=== PATIENT | male | born 1935 | race Caucasian/White ===

== ENCOUNTER → 2016-08-02 | Outpatient (CLI) | payer MEDICARE, OTHER ==
--- NOTE | 2016-08-03 05:42 | US ---
Procedure: US CAROTID DOPPLER BILATERAL Exam Date: 08/02/2016 Ordering Provider: EMILY ECHAVARRIA Clinical Indication: Dizziness giddiness Comparison: February 21, 2012 CTA neck TECHNIQUE : Real-time cerebrovascular ultrasonography was obtained from sternal notch to the angle of the mandible bilaterally utilizing moss scale, color flow and spectral Doppler analysis. Systolic velocity ratios were calculated for internal carotid artery to common carotid artery bilaterally. FINDINGS: RIGHT CAROTID BIFURCATION: Right internal carotid artery is occluded. There is no flow visualized in the right vertebral artery. LEFT CAROTID BIFURCATION: Moderate atherosclerotic plaque. Peak systolic and end-diastolic velocities in the left internal carotid artery are 148 and 41 cm/s. Internal carotid/common carotid ratio is 1.8. Left vertebral flow is antegrade. IMPRESSION: 1. Right internal carotid artery is occluded. 2. There is 50-69% stenosis at the left ICA origin. 3. There is antegrade flow in the left vertebral artery. 4. No flow visualized in the right vertebral artery. Electronically signed by: Marcos Cuellar MD 08/03/2016 5:41 AM CDT
== END | disposition home or self-care (01) ==
LOC: US 12:33
PROVIDERS: ATTEND Internal Medicine Interventional Cardiology
DX: I65.23 Occlusion and stenosis of bilateral carotid arteries (principal); R42 Dizziness and giddiness

== ENCOUNTER 2016-08-29 18:45 | Emergency (ER) | payer MEDICARE, OTHER ==
[2016-08-29 19:19] VITALS: BP 170/75; TEMP 97.7; O2SAT 93
--- NOTE | 2016-08-29 19:23 | ED.PDOC ---
History of Present Illness - General Chief Complaint: Skin/Abrasion/Tear Stated Complaint: rash on arms Time Seen by Provider: 08/29/16 19:19 Source: patient, family Exam Limitations: no limitations - History of Present Illness Initial Comments: PT REPORTS 1 WEEK HISTORY OF PRURITIC BILATERAL UPPER EXTREMITY RASH THAT BEGAN 1 WEEK AGO. PT REPORTS WORKING IN THE YARD AND COVERING BOTH ARMS WITH SOCKS TO PREVENT BRUISING. PT REPORTS THAT THE RASH DEVELOPED APPROXIMATELY 2 DAYS AFTER WORKING IN THE YARD. PT REPORTS USING BENADRYL GEL AT HOME WITH ONLY MINIMAL IMPROVEMENT IN SYMPTOMS. Timing/Duration: week Severity: moderate Location: extremities - bilateral upper Improving Factors: medication - topical preparations at home Worsening Factors: nothing Associated Symptoms: denies symptoms Allergies/Adverse Reactions: Allergies NO KNOWN ALLERGY Allergy (Verified 08/29/16 19:05) Home Medications: Ambulatory Orders Aspirin [(None)] 325 mg PO QD 12/05/15 Atorvastatin Calcium [Lipitor] 80 mg PO BEDTIME 12/05/15 Clopidogrel Bisulfate [Plavix] 75 mg PO QD 12/05/15 Lisinopril 20 mg PO BEDTIME 12/05/15 Lisinopril 20 mg PO DAILY@0700 12/05/15 Metformin HCl 500 mg PO BEDTIME 12/05/15 Metoprolol Tartrate 50 mg PO BEDTIME 12/05/15 Metoprolol Tartrate 50 mg PO DAILY@0700 12/05/15 Potassium Chloride [Potassium Chloride ER] 20 meq PO DAILY 12/05/15 amLODIPine BESYLATE [Norvasc] 5 mg PO DAILY 12/05/15 Prednisone 50 mg PO DAILY #5 tab 08/29/16 Review of Systems - Review of Systems Constitutional: Denies: fever, malaise Musculoskeletal: Denies: joint pain, joint swelling Skin: Denies: dryness, lumps Neurological: Denies: numbness, paresthesia Hematologic/Lymphatic: Denies: blood clots, swollen glands Past Medical History (General) - Patient Medical History Hx Seizures: No Hx Stroke: No Hx Dementia: No Hx Asthma: No Hx of COPD: No Hx Cardiac Disorders: Yes Hx Congestive Heart Failure: No Hx Pacemaker: Yes Hx Hypertension: Yes Hx Thyroid Disease: No Hx Diabetes: Yes Hx Gastroesophageal Reflux: No Hx Renal Disease: No Hx Cancer: No Hx of HIV: No Hx Hepatitis C: No Hx MRSA: No Surgical History: coronary bypass surgery, pacemaker, other - Vaccination History Hx Tetanus, Diphtheria Vaccination: No Hx Influenza Vaccination: Yes Hx Pneumococcal Vaccination: Yes Immunizations Up to Date: No - Social History Hx Tobacco Use: Yes Hx Chewing Tobacco Use: Yes Tins Per Day Chewed: 0.5 Tins Per Week: 3 Hx Alcohol Use: No Hx Substance Use: No Hx Substance Use Treatment: No Hx Depression: No Feels Threatened In Home Enviroment: No Feels Threatened In a Relationship: No Hx Physical Abuse: No Hx Emotional Abuse: No Hx Suspected Abuse: No - Female History Patient is a Female of Child Bearing Age (10 -59 yrs old): No Family Medical History - Family History Mother Living Status: Physical Exam - Physical Exam General Appearance: Alert, Comfortable, No apparent distress Extremity: normal range of motion, non-tender Skin Exam: warm/dry Skin Problem Location: upper extremities Skin Character: papules - COALESCENT ERYTHEMATOUS URTICARIAL AND SCATTERED PAPULAR LESIONS TO THE MEDIAL ASPECTS OF BOTH FOREARMS. NO PALMAR INVOLVEMENT, NO BLISTERS NOTED. , urticarial Lymphatic: no adenopathy Progress - Progress Progress: 08/29/16 19:28 IM BENADRYL AND SOLU MEDROL ADMINISTERED IN THE ED. PT INSTRUCTED TO FOLLOW UP WITH PCP FOR FURTHER EVALUATION. Departure - Departure Clinical Impression: Pruritic rash Time of Disposition: 19:29 Disposition: Discharge to Home or Self Care Condition: Good Departure Forms: ED Discharge - Pt. Copy, Patient Portal Self Enrollment Instructions: DI for Rash Referrals: Elier Pan MD [Primary Care Provider] - 1-2 Weeks Prescriptions: Prednisone 50 mg PO DAILY #5 tab Home Medications: Ambulatory Orders Aspirin [(None)] 325 mg PO QD 12/05/15 Atorvastatin Calcium [Lipitor] 80 mg PO BEDTIME 12/05/15 Clopidogrel Bisulfate [Plavix] 75 mg PO QD 12/05/15 Lisinopril 20 mg PO BEDTIME 12/05/15 Lisinopril 20 mg PO DAILY@0700 12/05/15 Metformin HCl 500 mg PO BEDTIME 12/05/15 Metoprolol Tartrate 50 mg PO BEDTIME 12/05/15 Metoprolol Tartrate 50 mg PO DAILY@0700 12/05/15 Potassium Chloride [Potassium Chloride ER] 20 meq PO DAILY 12/05/15 amLODIPine BESYLATE [Norvasc] 5 mg PO DAILY 12/05/15 Prednisone 50 mg PO DAILY #5 tab 08/29/16
[2016-08-29] MEDS: diphenhydrAMINE HCL 50 MG/ML VIAL IM ONE (19:27)
[2016-08-29] MEDS: methylPREDNISolone SODIUM SUC 125 MG/2 ML VIAL IM ONE (19:27)
== END 2016-08-29 19:45 | disposition home or self-care (01) ==
LOC: ER 18:45
DX: L29.9 Pruritus, unspecified (principal); F17.220 Nicotine dependence, chewing tobacco, uncomplicated; I10 Essential (primary) hypertension; E11.9 Type 2 diabetes mellitus without complications; Z95.0 Presence of cardiac pacemaker; Z95.1 Presence of aortocoronary bypass graft; Z79.899 Other long term (current) drug therapy; Z79.82 Long term (current) use of aspirin; Z79.02 Long term (current) use of antithrombotics/antiplatelets
CPT/HCPCS: J1200; J2930

== ENCOUNTER → 2016-10-27 | Outpatient (CLI) | payer MEDICARE, OTHER | END | disposition home or self-care (01) | LOC: GMAB 10:50 | PROVIDERS: ATTEND Family Medicine | DX: Z12.5 Encounter for screening for malignant neoplasm of prostate (principal); I10 Essential (primary) hypertension | CPT/HCPCS: 84443; G0103 ==

== ENCOUNTER → 2017-10-31 | Outpatient (CLI) | payer MEDICARE, OTHER | LOC: GMAE 10:31 | PROVIDERS: ATTEND Family Medicine | DX: R25.2 Cramp and spasm (principal); R26.9 Unspecified abnormalities of gait and mobility; I10 Essential (primary) hypertension ==

== ENCOUNTER → 2018-10-30 | Outpatient (CLI) | payer MEDICARE, OTHER | LOC: GMAE 14:27 | PROVIDERS: ATTEND Family Medicine | DX: E53.8 Deficiency of other specified B group vitamins (principal); R53.82 Chronic fatigue, unspecified; M62.81 Muscle weakness (generalized); E83.51 Hypocalcemia; E11.9 Type 2 diabetes mellitus without complications; E78.2 Mixed hyperlipidemia; Z79.891 Long term (current) use of opiate analgesic ==

== ENCOUNTER 2018-11-06 22:09 | Emergency (ER) | payer MEDICARE, OTHER ==
--- NOTE | 2018-11-06 22:47 | ED.PDOC ---
History of Present Illness - General Chief Complaint: Upper Extremity Injury Stated Complaint: Right Shoulder Pain Time Seen by Provider: 11/06/18 22:27 Source: patient Exam Limitations: no limitations - History of Present Illness Initial Comments: Patient presents with right shoulder pain. It started this evening when he was fixing a gutter and he had his arm extended forward above his head. The pain is at the A-C joint with no radiation. Constant. Worse with movement, better with rest. He did have a problem with his right rotator cuff many years ago. No other complaints. Timing/Duration: 1-3 hours Severity: moderate Improving Factors: rest Worsening Factors: movement Associated Symptoms: denies symptoms Allergies/Adverse Reactions: Allergies NO KNOWN ALLERGY Allergy (Verified 08/29/16 19:05) Home Medications: Ambulatory Orders Aspirin [(None)] 325 mg PO QD 12/05/15 Atorvastatin Calcium [Lipitor] 80 mg PO BEDTIME 12/05/15 Clopidogrel Bisulfate [Plavix] 75 mg PO QD 12/05/15 Lisinopril 20 mg PO DAILY@0700 12/05/15 Metformin HCl [Metformin Hydrochloride] 500 mg PO BEDTIME 12/05/15 Metoprolol Tartrate 50 mg PO BEDTIME 12/05/15 Metoprolol Tartrate 100 mg PO BEDTIME 12/05/15 Potassium Chloride [Potassium Chloride ER] 20 meq PO DAILY 12/05/15 amLODIPine BESYLATE [Norvasc] 10 mg PO DAILY 12/05/15 Cyclobenzaprine HCl [Flexeril] 10 mg PO TID PRN #20 tab 11/06/18 Review of Systems - Review of Systems Constitutional: States: no symptoms reported EENTM: States: no symptoms reported Respiratory: States: no symptoms reported Cardiology: States: no symptoms reported Gastrointestinal/Abdominal: States: no symptoms reported Genitourinary: States: no symptoms reported Musculoskeletal: States: see HPI Skin: States: no symptoms reported Neurological: States: no symptoms reported Endocrine: States: no symptoms reported Hematologic/Lymphatic: States: no symptoms reported Past Medical History (General) - Patient Medical History Hx Seizures: No Hx Stroke: No Hx Dementia: No Hx Asthma: No Hx of COPD: No Hx Cardiac Disorders: Yes - Pt has STENTs Hx Congestive Heart Failure: No Hx Pacemaker: Yes Hx Hypertension: Yes Hx Thyroid Disease: No Hx Diabetes: Yes Hx Gastroesophageal Reflux: No Hx Renal Disease: No Hx Cancer: No Hx of HIV: No Hx Hepatitis C: No Hx MRSA: No Surgical History: pacemaker - Vaccination History Hx Tetanus, Diphtheria Vaccination: No Hx Influenza Vaccination: No Hx Pneumococcal Vaccination: Yes - 11/06/2018 Immunizations Up to Date: No - Social History Hx Tobacco Use: Yes Hx Chewing Tobacco Use: Yes - 1 can per four days Hx Alcohol Use: No Hx Substance Use: No Hx Substance Use Treatment: No Hx Depression: No Feels Threatened In Home Enviroment: No Feels Threatened In a Relationship: No Hx Physical Abuse: No Hx Emotional Abuse: No Hx Suspected Abuse: No Family Medical History - Family History Mother Living Status: Physical Exam - Physical Exam General Appearance: Alert Neck: non-tender, full range of motion, supple Respiratory: lungs clear, normal breath sounds Cardiovascular/Chest: normal peripheral pulses, regular rate, rhythm Gastrointestinal/Abdominal: normal bowel sounds, non tender, soft Extremity: other - Pain with abduction.extension, rotation and elevation of the right arm. Beer can sign is positive. Internal rotation with adduction is painful against resistance. Retraction with full extension against resistance is painful. Elevation at 90 degree flexion of the forearm with resistance to external rotation is painful. Neurologic: no motor/sensory deficits, alert, normal mood/affect, oriented x 3 Progress - Progress Progress: 11/06/18 23:36 Radiographs of the right shoulder were negative for fracture or dislocation. Patient given a sling and RX for Flexeril. Care instructions given. E.R. warnings given. Questions were elicited and answered. Patient voiced understanding and agreement with the plan. - EKG/XRAY/CT CT Ordered: No Departure - Departure Clinical Impression: Rotator cuff disorder Disposition: Discharge to Home or Self Care Condition: Good Departure Forms: ED Discharge - Pt. Copy, Patient Portal Self Enrollment Instructions: Rotator Cuff Injury (DC) Diet: resume usual diet Activity: no pushing/pulling with affected limb Prescriptions: Cyclobenzaprine HCl [Flexeril] 10 mg PO TID PRN #20 tab PRN Reason: Pain Home Medications: Ambulatory Orders Aspirin [(None)] 325 mg PO QD 12/05/15 Atorvastatin Calcium [Lipitor] 80 mg PO BEDTIME 12/05/15 Clopidogrel Bisulfate [Plavix] 75 mg PO QD 12/05/15 Lisinopril 20 mg PO DAILY@0700 12/05/15 Metformin HCl [Metformin Hydrochloride] 500 mg PO BEDTIME 12/05/15 Metoprolol Tartrate 50 mg PO BEDTIME 12/05/15 Metoprolol Tartrate 100 mg PO BEDTIME 12/05/15 Potassium Chloride [Potassium Chloride ER] 20 meq PO DAILY 12/05/15 amLODIPine BESYLATE [Norvasc] 10 mg PO DAILY 12/05/15 Cyclobenzaprine HCl [Flexeril] 10 mg PO TID PRN #20 tab 11/06/18 Additional Instructions: Take medication as prescribed. Us the sling except when showering or bathing. See your regular doctor in three days for further evaluation.
--- NOTE | 2018-11-06 22:56 | RAD ---
EXAM: XR Right Shoulder Complete, 2 or More Views CLINICAL HISTORY: The patient is 83 years old and is Male; right shoulder pain TECHNIQUE: Two or more views of the right shoulder. COMPARISON: No relevant prior studies available. FINDINGS: BONES/JOINTS: Degenerative change of the shoulder with acromioclavicular and glenohumeral joint space narrowing is present. No acute fracture. No dislocation. SOFT TISSUES: Unremarkable. LUNGS: The visualized lung is clear. IMPRESSION: No acute findings. Electronically signed by: Liz Funes MD 11/06/2018 10:54 PM CDT
[2018-11-06] MEDS ORDERED: ORPHENADRINE CITRATE 30 MG/ML AMP IM ONE (23:42)
[2018-11-06] MEDS ORDERED: KETOROLAC TROMETHAMINE INJ 30 MG/ML VIAL IM ONE (23:43)
[2018-11-07 00:15] VITALS: BP 156/68; TEMP 98.7; O2SAT 93
== END 2018-11-07 00:18 | disposition home or self-care (01) ==
LOC: ER 22:09
DX: M75.101 Unspecified rotator cuff tear or rupture of right shoulder, not specified as traumatic (principal); I51.9 Heart disease, unspecified; I10 Essential (primary) hypertension; E11.9 Type 2 diabetes mellitus without complications; Z95.0 Presence of cardiac pacemaker; Z95.5 Presence of coronary angioplasty implant and graft; Z79.899 Other long term (current) drug therapy; Z79.82 Long term (current) use of aspirin; Z79.84 Long term (current) use of oral hypoglycemic drugs
CPT/HCPCS: 73030; J1885; J2360

== ENCOUNTER → 2018-11-23 | Outpatient (CLI) | payer MEDICARE, OTHER | LOC: CT 09:00 | PROVIDERS: ATTEND Internal Medicine Nephrology | DX: N18.4 Chronic kidney disease, stage 4 (severe) (principal); N28.1 Cyst of kidney, acquired; N20.0 Calculus of kidney; I70.8 Atherosclerosis of other arteries; R16.0 Hepatomegaly, not elsewhere classified; K59.00 Constipation, unspecified; N40.0 Benign prostatic hyperplasia without lower urinary tract symptoms; K40.20 Bilateral inguinal hernia, without obstruction or gangrene, not specified as recurrent; Z90.49 Acquired absence of other specified parts of digestive tract; Z95.828 Presence of other vascular implants and grafts; Z98.1 Arthrodesis status ==

== ENCOUNTER → 2019-01-08 | Outpatient (CLI) | payer MEDICARE, OTHER | LOC: GMAE 11:14 | PROVIDERS: ATTEND Family Medicine | DX: D47.2 Monoclonal gammopathy (principal) ==

== ENCOUNTER 2019-10-28 12:55 | Emergency (ER) | payer MEDICARE, OTHER ==
[2019-10-28] MEDS ORDERED: SODIUM CHLORIDE 0.9% (FLUSH) 10 ML SYG IV PRN (13:24)
--- NOTE | 2019-10-28 13:25 | ED.PDOC ---
History of Present Illness - General Chief Complaint: Blood Pressure Problem Stated Complaint: dizziness, weakness, low BP Time Seen by Provider: 10/28/19 13:24 - History of Present Illness Initial Comments: 84 yo male with PMH of HTN, CKD who is bib from home for cc of lightheadedness. Onset around 10:30 AM this morning, waxing and waning, moderate severity at worst, currently mild severity at rest. No known exacerbating or relieving factors. He reports that he took all of his morning medications including lisinopril 20 mg, Norvasc 5 mg, and metoprolol 50 mg. Reports around 1 hour ago he checked his blood pressure at home which was 105/63, which he states is pretty low for him. Also reports some dizziness and occasional blurry vision as well as some generalized weakness and fatigue since this morning. He reports he has had occasional similar symptoms for several weeks now. He states that usually occurs shortly after taking his blood pressure medication and he reports his blood pressure is lower than usual while symptoms are occurring. Currently denies any chest pain, dyspnea, fevers, chills, cough, abdominal pain, nausea, vomiting, diarrhea, urinary symptoms, leg swelling. Denies any confusion, facial droop, slurred speech, weakness, numbness. PCP is Dr. Rios and nutrition instructor is Dr. Capellan. Allergies/Adverse Reactions: Allergies NO KNOWN ALLERGY Allergy (Verified 08/29/16 19:05) Home Medications: Ambulatory Orders Aspirin [(None)] 325 mg PO QD 12/05/15 Atorvastatin Calcium [Lipitor] 80 mg PO BEDTIME 12/05/15 Clopidogrel Bisulfate [Plavix] 75 mg PO QD 12/05/15 Lisinopril 20 mg PO DAILY@0700 12/05/15 Metoprolol Tartrate 50 mg PO BID 12/05/15 Potassium Chloride [Potassium Chloride ER] 20 meq PO DAILY 12/05/15 amLODIPine BESYLATE [Norvasc] 10 mg PO DAILY 12/05/15 Cyclobenzaprine HCl [Flexeril] 10 mg PO TID PRN #20 tab 11/06/18 Review of Systems - Review of Systems Review of Systems: 10/28/19 14:01 Per HPI All other Systems: Reviewed and Negative Past Medical History (General) - Patient Medical History Hx Seizures: No Hx Stroke: No Hx Dementia: No Hx Asthma: No Hx of COPD: No Hx Cardiac Disorders: Yes - Pt has STENTs Hx Congestive Heart Failure: No Hx Pacemaker: Yes Hx Hypertension: Yes Hx Thyroid Disease: No Hx Diabetes: No Hx Gastroesophageal Reflux: No Hx Renal Disease: No Hx Cancer: No Hx of HIV: No Hx Hepatitis C: No Hx MRSA: No Surgical History: coronary bypass surgery, pacemaker - Vaccination History Hx Tetanus, Diphtheria Vaccination: No Hx Influenza Vaccination: No Hx Pneumococcal Vaccination: Yes - 11/06/2018 - Social History Hx Tobacco Use: Yes Hx Chewing Tobacco Use: Yes - 1 can per four days Hx Alcohol Use: No Hx Substance Use: No Hx Substance Use Treatment: No Hx Depression: No Hx Physical Abuse: No Hx Emotional Abuse: No Hx Suspected Abuse: No - Activities of Daily Living Hospice Agency (if applicable):: None - Female History Patient is a Female of Child Bearing Age (10 -59 yrs old): No Family Medical History - Family History Mother Living Status: Physical Exam - Physical Exam General Appearance: Alert, Comfortable, No apparent distress Eye Exam: bilateral normal Ears, Nose, Throat: hearing grossly normal, normal ENT inspection, normal pharynx Neck: non-tender, full range of motion, supple, normal inspection Respiratory: chest non-tender, lungs clear, normal breath sounds, no respiratory distress, no accessory muscle use Cardiovascular/Chest: normal peripheral pulses, regular rate, rhythm, no edema, no gallop, no JVD, no murmur Peripheral Pulses: radial,right: 2+, radial,left: 2+ Gastrointestinal/Abdominal: non tender, soft, no organomegaly Back Exam: normal inspection, no CVA tenderness, no vertebral tenderness Extremity: normal range of motion, non-tender, normal inspection, no pedal e paul, no calf tenderness, normal capillary refill Neurologic: barrel driller II-XII nml as tested, no motor/sensory deficits, alert, normal mood/affect, oriented x 3 Skin Exam: normal color, warm/dry Progress - Progress Progress: 10/28/19 13:32 Dizziness, lightheadedness -Nonspecific in nature. Suspect iatrogenic due to blood pressure medications and hydrocodone. Consider also dehydration, electrolyte derangement, TIA, ACS, arrhythmia, CHF, UTI, other infection. -Patient stable upon ED arrival. Blood pressure 130s/60s. Remainder of vitals within normal limits -Obtain blood work and cardiac work-up and UA. Will place PIV and give 1 L normal saline bolus 10/28/19 14:49 -Pt has remained stable, all symptoms resolved in ED with IV fluids and rest. BP remained 130s-140s/60s in ED, remainder of vitals stable. Labs revealed serum creatinine level of 2.0. His baseline is around 1.[address] Rios. Remainder of lab work largely unremarkable from chronic. -Discussed diagnosis of iatrogenic hypotension which is now resolved. I discussed the patient with Dr. Rios who would like for the patient to continue on his usual medication regimen but to take them 1 to 2 hours apart in the morning and evening. He would like for the patient to follow-up in the next week with a log of the patient's blood pressures at home. I have advised the patient of this. We will discharge him to home in good condition with that plan in mind. ED return precautions discussed at length. Malik Martinez MD Billing #[id number]. 10/28/19 13:24 IV Care:Saline Lock per Protoc QSHIFT Telemetry .ONCE Sodium Chloride 0.9% (Flush) [Saline Flush Syringe] 10 ml IV PRN PRN 10/28/19 13:25 UA [URINALYSIS] Stat 10/28/19 13:30 EKG STAT 10/28/19 13:57 Sodium Chloride 0.9% 1000ML [Ns 1000 ml] 1,000 ml IVS ONCE 10/29/19 09:00 Pulse Ox Daily Laboratory Results - last 24 hr 10/28/19 10/28/19 10/28/19 13:10 13:10 13:10 WBC 9.7 RBC 4.36 L Hgb 13.7 L Hct 39.7 L MCV 91.1 MCH 31.3 H MCHC 34.4 RDW 13.8 Plt Count 161 MPV 7.9 Absolute Neuts (auto) 7.50 H Absolute Lymphs (auto) 1.50 Absolute Monos (auto) 0.40 Absolute Eos (auto) 0.20 Absolute Basos (auto) 0.00 Neutrophils % 77.8 Lymphocytes % 15.4 L Monocytes % 4.1 Eosinophils % 2.2 Basophils % 0.5 Sodium 141 Potassium 4.8 Chloride 112 H Carbon Dioxide 23 Anion Gap 10.8 L BUN 31 H Creatinine 2.02 H BUN/Creatinine Ratio 15.3 Random Glucose 160 H Serum Osmolality 291.2 Calcium 9.2 Total Bilirubin 0.7 AST 17 ALT 20 Alkaline Phosphatase 86 Troponin I < 0.02 B-Natriuretic Peptide 204.0 H* Serum Total Protein 7.3 Albumin 3.8 Globulin 3.5 Albumin/Globulin Ratio 1.1 - EKG/XRAY/CT EKG: Atrial - Atrial paced rhythm, heart rate 60, no ST elevations noted, no Q waves noted, axis normal, intervals normal, compared to 12/05/2015 EKG appears unchanged. XRAY: chest - No acute processes per my read. Cardiomegaly without acute congestive heart failure noted. Atrial pacemaker noted. Departure - Departure Clinical Impression: Mild dehydration Adverse effects of medication Qualifiers: Encounter type: initial encounter Qualified Code(s): T50.905A - Adverse effect of unspecified drugs, medicaments and biological substances, initial encounter Time of Disposition: 14:47 Disposition: Discharge to Home or Self Care Condition: Good Departure Forms: ED Discharge - Pt. Copy, Patient Portal Self Enrollment Instructions: DI for High Blood Pressure, Low Blood Pressure (DC) Diet: resume usual diet Activity: increase activity as tolerated Referrals: FARHAT RIOS MD [Primary Care Provider] - 1-5 Days Home Medications: Ambulatory Orders Aspirin [(None)] 325 mg PO QD 12/05/15 Atorvastatin Calcium [Lipitor] 80 mg PO BEDTIME 12/05/15 Clopidogrel Bisulfate [Plavix] 75 mg PO QD 12/05/15 Lisinopril 20 mg PO DAILY@0700 12/05/15 Metoprolol Tartrate 50 mg PO BID 12/05/15 Potassium Chloride [Potassium Chloride ER] 20 meq PO DAILY 12/05/15 amLODIPine BESYLATE [Norvasc] 10 mg PO DAILY 12/05/15 Cyclobenzaprine HCl [Flexeril] 10 mg PO TID PRN #20 tab 11/06/18 Additional Instructions: Continue taking all your home medications. Try taking your morning and evening blood pressure medications each 1 at a time at least 1 to 2 hours apart in order to prevent drops in your blood pressure and dizziness symptoms. Remain well- hydrated and advance your diet and activity level as tolerated. Return to the ED if you develop any concerning symptoms such as focal weakness or numbness, slurred speech, confusion, facial droop, chest pain, shortness of breath, fevers, chills, etc. Record your blood pressure 3 times per day and bring this log to your next visit with your primary care physician. Follow-up with your primary care physician in the next 3 to 5 days as recommended for repeat blood pressure check and evaluation.
--- NOTE | 2019-10-28 13:51 | RAD ---
EXAM DESCRIPTION: Chest,1 View x-ray CLINICAL HISTORY: 84 years Male, dizziness, weakness COMPARISON: 02/10/2012 IMPRESSION: The heart is enlarged, without failure. Median sternotomy wires with changes of prior cardiac surgery. Dual lead left chest wall cardiac device. Atherosclerosis in the thoracic aorta. There is no airspace consolidation, pleural effusion, or pneumothorax. No acute osseous abnormality. Electronically signed by: Julio Krause MD 10/28/2019 1:49 PM CDT
[2019-10-28] MEDS ORDERED: SODIUM CHLORIDE 0.9% 1000ML 1,000 ML IVS ONE (13:57)
[2019-10-28 15:36] VITALS: BP 122/74; TEMP 97.1; O2SAT 96
== END 2019-10-28 15:30 | disposition home or self-care (01) ==
LOC: ER 12:55
DX: E86.0 Dehydration (principal); T50.905A Adverse effect of unspecified drugs, medicaments and biological substances, initial encounter; I12.9 Hypertensive chronic kidney disease with stage 1 through stage 4 chronic kidney disease, or unspecified chronic kidney disease; N18.9 Chronic kidney disease, unspecified; I51.9 Heart disease, unspecified; Z95.5 Presence of coronary angioplasty implant and graft; Z95.0 Presence of cardiac pacemaker; Z79.899 Other long term (current) drug therapy; Z79.02 Long term (current) use of antithrombotics/antiplatelets; Z87.891 Personal history of nicotine dependence
CPT/HCPCS: 36415; 71045; 80053; 83880; 84484; 85025; 93005; J7030

== ENCOUNTER → 2019-11-11 | Outpatient (CLI) | payer MEDICARE, OTHER | LOC: GMAE 10:24 | PROVIDERS: ATTEND Family Medicine | DX: Z12.5 Encounter for screening for malignant neoplasm of prostate (principal); I10 Essential (primary) hypertension; E11.9 Type 2 diabetes mellitus without complications; E78.2 Mixed hyperlipidemia; Z79.891 Long term (current) use of opiate analgesic | CPT/HCPCS: 84443; G0103 ==

== ENCOUNTER 2020-01-06 08:03 | Emergency (ER) | payer MEDICARE, OTHER ==
[2020-01-06 08:14] VITALS: TEMP 97.8
--- NOTE | 2020-01-06 08:19 | ED.PDOC ---
History of Present Illness - General Chief Complaint: Respiratory Problem Stated Complaint: SOB AND COUGH Time Seen by Provider: 01/06/20 08:06 Source: patient, RN notes reviewed, Vital Signs reviewed, family, old records Exam Limitations: no limitations - History of Present Illness Comments: Pt is a 85 yo male who presents to ED with 3 day h/o nonproductive cough and "dry throat." Reports mild shortness of breath. Denies CP, fever, chills, body aches or recent sick contacts. States all of his symptoms completely resolved about 10 minutes ago and he feels at baseline at this time. Allergies/Adverse Reactions: Allergies NO KNOWN ALLERGY Allergy (Verified 01/06/20 08:15) Home Medications: Ambulatory Orders Aspirin [(None)] 325 mg PO QD 12/05/15 Clopidogrel Bisulfate [Plavix] 75 mg PO QD 12/05/15 Metoprolol Tartrate 50 mg PO BID 12/05/15 Potassium Chloride [Potassium Chloride ER] 20 meq PO DAILY 12/05/15 Review of Systems - Review of Systems Constitutional: Denies: chills, fever, malaise EENTM: States: other - dry throat. Denies: ear pain, nose congestion Respiratory: States: cough. Denies: wheezing Cardiology: Denies: chest pain, palpitations, syncope Gastrointestinal/Abdominal: Denies: abdominal pain, diarrhea, nausea, vomiting Musculoskeletal: Denies: back pain, neck pain Skin: Denies: rash All other Systems: Reviewed and Negative Past Medical History (General) - Patient Medical History Hx Seizures: No Hx Stroke: No Hx Dementia: No Hx Asthma: No Hx of COPD: No Hx Cardiac Disorders: Yes - Pt has STENTs/BYPASS Hx Congestive Heart Failure: No Hx Pacemaker: Yes Hx Hypertension: Yes Hx Thyroid Disease: No Hx Diabetes: No Hx Gastroesophageal Reflux: No Hx Renal Disease: No Hx Cancer: No Hx of HIV: No Hx Hepatitis C: No Hx MRSA: No Surgical History: appendectomy, cholecystectomy, coronary bypass surgery - Vaccination History Hx Tetanus, Diphtheria Vaccination: No Hx Influenza Vaccination: No Hx Pneumococcal Vaccination: Yes - Social History Hx Tobacco Use: Yes Hx Chewing Tobacco Use: Yes - 1 can per four days Hx Alcohol Use: No Hx Substance Use: No Hx Substance Use Treatment: No Hx Depression: No Hx Physical Abuse: No Hx Emotional Abuse: No Hx Suspected Abuse: No Family Medical History - Family History Mother Living Status: Physical Exam - Physical Exam General Appearance: Alert, Comfortable, No apparent distress ENT Exam: other - oropharynx has no erythema, edema or exudates Neck: full range of motion, supple Respiratory: chest non-tender, lungs clear, normal breath sounds, no respiratory distress, other - Good air movement with no wheezes. Speaks in full sentences Cardiovascular/Chest: regular rate, rhythm, no edema Gastrointestinal/Abdominal: non tender, soft Extremity: normal range of motion, non-tender Neurologic: no motor/sensory deficits, alert, normal mood/affect Progress - Progress Progress: 01/06/20 08:21 Differential Diagnosis: Pneumonia, Viral URI, Bronchitis, COPD 01/06/20 10:06 Patient presented with cough, mild shortness of breath and feeling that his throat was dry. States after he began wearing a mask all his symptoms have resolved and has remained symptom-free throughout ED stay. I have discussed labs and imaging. Vital signs have been stable and he has no hypoxia or respiratory distress. He feels comfortable going home with follow-up with his PCP in 1 to 2 days for recheck. Strict return precautions given. - Results/Orders Results/Orders: CHEST XRAY EXAM DESCRIPTION: Chest,1 View x-ray CLINICAL HISTORY: 85 years Male, cough COMPARISON: 10/28/2019 IMPRESSION: The heart remains enlarged, without failure. Median sternotomy wires with changes of prior cardiac surgery. Dual lead left chest wall cardiac device. Atherosclerosis in the thoracic aorta. The lungs are mildly hyperexpanded. There is no airspace consolidation, pleural effusion, or pneumothorax. No acute osseous abnormality. Partially imaged lower cervical ACDF hardware. EKG- Atrial paced rhythm, rate 60, normal QRS interval, nonspecific T wave abnormality 01/06/20 08:15 IV:Start .ONCE Laboratory Results - last 24 hr 01/06/20 01/06/20 08:18 08:18 WBC 8.8 RBC 4.43 L Hgb 13.7 L Hct 40.4 L MCV 91.2 MCH 31.0 MCHC 34.0 RDW 13.8 Plt Count 134 MPV 7.7 Absolute Neuts (auto) 6.80 Absolute Lymphs (auto) 1.10 Absolute Monos (auto) 0.50 Absolute Eos (auto) 0.30 Absolute Basos (auto) 0.10 Neutrophils % 77.3 Lymphocytes % 13.0 L Monocytes % 5.4 Eosinophils % 3.4 Basophils % 0.9 Sodium 139 Potassium 4.7 Chloride 106 Carbon Dioxide 24 Anion Gap 13.7 BUN 28 H Creatinine 1.63 H BUN/Creatinine Ratio 17.2 Random Glucose 170 H Serum Osmolality 287.0 Calcium 8.9 Departure - Departure Clinical Impression: Viral URI with cough Time of Disposition: 10:07 Disposition: Discharge to Home or Self Care Condition: Good Departure Forms: ED Discharge - Pt. Copy, Patient Portal Self Enrollment Instructions: Viral Upper Respiratory Infection, Adult (DC) Diet: resume usual diet Activity: increase activity as tolerated Referrals: FARHAT RAMIREZ MD [Primary Care Provider] - 1-2 Days Home Medications: Ambulatory Orders Aspirin [(None)] 325 mg PO QD 12/05/15 Clopidogrel Bisulfate [Plavix] 75 mg PO QD 12/05/15 Metoprolol Tartrate 50 mg PO BID 12/05/15 Potassium Chloride [Potassium Chloride ER] 20 meq PO DAILY 12/05/15
--- NOTE | 2020-01-06 10:02 | RAD ---
EXAM DESCRIPTION: Chest,1 View x-ray CLINICAL HISTORY: 85 years Male, cough COMPARISON: 10/28/2019 IMPRESSION: The heart remains enlarged, without failure. Median sternotomy wires with changes of prior cardiac surgery. Dual lead left chest wall cardiac device. Atherosclerosis in the thoracic aorta. The lungs are mildly hyperexpanded. There is no airspace consolidation, pleural effusion, or pneumothorax. No acute osseous abnormality. Partially imaged lower cervical ACDF hardware. Electronically signed by: Julio Krause MD 01/06/2020 10:01 AM CDT
[2020-01-06 10:24] VITALS: BP 139/51; O2SAT 95
== END 2020-01-06 10:24 | disposition home or self-care (01) ==
LOC: ER 08:03
DX: J06.9 Acute upper respiratory infection, unspecified (principal); I10 Essential (primary) hypertension; I51.9 Heart disease, unspecified; Z95.0 Presence of cardiac pacemaker; Z95.5 Presence of coronary angioplasty implant and graft; Z87.891 Personal history of nicotine dependence; Z79.82 Long term (current) use of aspirin; Z79.02 Long term (current) use of antithrombotics/antiplatelets; Z79.899 Other long term (current) drug therapy

== ENCOUNTER 2020-03-05 12:52 | Outpatient (CLI) | payer MEDICARE, OTHER | END 2020-03-06 11:22 | disposition home or self-care (01) | LOC: INFRM 12:52 | PROVIDERS: ATTEND Family Medicine | DX: U07.1 COVID-19 (principal); I10 Essential (primary) hypertension; J44.9 Chronic obstructive pulmonary disease, unspecified; I25.10 Atherosclerotic heart disease of native coronary artery without angina pectoris; Z23 Encounter for immunization ==

== ENCOUNTER 2020-03-17 11:23 | Inpatient (IN) | payer MEDICARE, OTHER ==
--- NOTE | 2020-03-17 12:17 | RAD ---
Study: Single Frontal Radiograph of the Chest. Indication:covid Comparison: January 06, 2020 Impression: Median sternotomy wires. Cardiac pacemaker. Cardiomegaly. Slightly progressed increased density at the lung bases concerning for pneumonia versus atelectasis. COVID-19 could give this appearance. No pleural effusion or pneumothorax. Electronically signed by: Edgar Piedra MD 03/17/2020 12:15 PM SAFETY COORDINATOR
[2020-03-17] MEDS ORDERED: SODIUM CHLORIDE 0.9% 1000ML 1,000 ML IVS ONE (12:40)
[2020-03-17] MEDS ORDERED: ACETYLCYSTEIN 20 % 6,000 MG/30 ML VIAL PO ONE (12:40)
[2020-03-17] MEDS ORDERED: DEXAMETHASONE INJ 4 MG/ML VIAL IV ONE (12:42)
[2020-03-17] MEDS ORDERED: REMDESIVIR 200 MG in SODIUM CHLORIDE 0.9% 250ML 250 ML IVPB ONE ×2 (12:42→17:00)
[2020-03-17] MEDS ORDERED: cefTRIAXone SODIUM 1 GM in SODIUM CHL 0.9% 50ML MIN-BAG+ 50 ML IVPB ONE (12:42)
[2020-03-17] MEDS ORDERED: AZITHROMYCIN IV 500 MG in SODIUM CHLORIDE 0.9% 250ML 250 ML IVPB ONE (12:43)
[2020-03-17] MEDS ORDERED: ENOXAPARIN SODIUM 80 MG/0.8 ML SYG SUBCU ONE (12:56)
--- NOTE | 2020-03-17 13:17 | ED.PDOC ---
History of Present Illness - General Chief Complaint: Fever Stated Complaint: COVID + Time Seen by Provider: 03/17/20 11:47 Source: patient Exam Limitations: no limitations - History of Present Illness Initial Comments: The patient is an 85-year-old male presented to emergency room secondary to worsening of his general condition over the past 10 days since darrin coronavirus. He does have a cough and some shortness of breath with exertion. He is also had some mild nausea and mild stomach upset. Mild decreased oral intake. He has gotten dizzy and felt weak with essentially almost any activity. The patient has been on steroids and apparently did receive a dose of monoclonal antibody in treatment. The patient does have some mild hypoxia here today. Oxygen saturations at rest ranged from 90 to 93% and with activity brought down to the mid 80s. He is not in respiratory distress. No syncope. He does have some rales to bilateral lung isaac primarily at the bases and lower lung isaac. Timing/Duration: 1 week, constant, getting worse Severity: moderate Improving Factors: nothing Worsening Factors: nothing Associated Symptoms: cough, malaise, shortness of breath, weakness Allergies/Adverse Reactions: Allergies IV DYE Allergy (Uncoded 03/17/20 12:54) Home Medications: Ambulatory Orders Aspirin [(None)] 325 mg PO QD 12/05/15 Clopidogrel Bisulfate [Plavix] 75 mg PO QD 12/05/15 Metoprolol Tartrate 50 mg PO BID 12/05/15 Potassium Chloride [Potassium Chloride ER] 20 meq PO DAILY 12/05/15 Review of Systems - Review of Systems Constitutional: States: malaise, weakness - Generalized EENTM: States: no symptoms reported Respiratory: States: cough, short of breath Cardiology: States: no symptoms reported Gastrointestinal/Abdominal: States: no symptoms reported Genitourinary: States: no symptoms reported Musculoskeletal: States: no symptoms reported Skin: States: no symptoms reported Neurological: States: no symptoms reported Endocrine: States: no symptoms reported All other Systems: No Change from Baseline Past Medical History (General) - Patient Medical History Hx Seizures: No Hx Stroke: No Hx Dementia: No Hx Asthma: No Hx of COPD: No Hx Cardiac Disorders: Yes - Pt has STENTs/BYPASS Hx Congestive Heart Failure: No Hx Pacemaker: Yes Hx Hypertension: Yes Hx Thyroid Disease: No Hx Diabetes: No Hx Gastroesophageal Reflux: No Hx Renal Disease: No Hx Cancer: No Hx of HIV: No Hx Hepatitis C: No Hx MRSA: No Surgical History: cholecystectomy, coronary bypass surgery - Vaccination History Hx Tetanus, Diphtheria Vaccination: No Hx Influenza Vaccination: Yes Hx Pneumococcal Vaccination: Yes - Social History Hx Tobacco Use: Yes - dips Hx Chewing Tobacco Use: Yes - 1 can per four days Hx Alcohol Use: No Hx Substance Use: No Hx Substance Use Treatment: No Hx Depression: No Hx Physical Abuse: No Hx Emotional Abuse: No Hx Suspected Abuse: No - Activities of Daily Living Hospice Agency (if applicable):: None - Female History Patient is a Female of Child Bearing Age (10 -59 yrs old): No Family Medical History - Family History Mother Living Status: Physical Exam - Physical Exam General Appearance: Alert, Frail, Ill Appearing Eye Exam: bilateral normal Ears, Nose, Throat: hearing grossly normal - Mild chronic decrease bilaterally, normal pharynx Neck: non-tender, full range of motion Respiratory: chest non-tender, no respiratory distress, no accessory muscle use, rales Cardiovascular/Chest: normal peripheral pulses, regular rate, rhythm, no edema Peripheral Pulses: radial,right: 2+, radial,left: 2+ Gastrointestinal/Abdominal: non tender, soft Rectal Exam: deferred Extremity: normal range of motion, no pedal edema, normal capillary refill Neurologic: loin trimmer II-XII nml as tested, alert, normal mood/affect, oriented x 3 Skin Exam: normal color Comments: Vital Signs - 24 hr 03/17/20 03/17/20 11:30 11:37 Temperature 98.4 F Pulse Rate [ 62 62 pulse ox] Respiratory 20 20 Rate Blood Pressure 179/71 [Left Arm] O2 Sat by Pulse 94 L Oximetry Progress - Progress Progress: 03/17/20 13:18 The patient is an 85-year-old male presented emergency room secondary to general worsening of condition over the last 10 days associated with his c oronavirus infection. He does have a coronavirus pneumonia with mild hypoxia. He carries a significantly elevated D-dimer. He is going to be receiving Lovenox as a precautionary. He is unable to have a CT angiogram of the chest secondary to IV dye allergy. He may require an outpatient VQ scan in the coming weeks. Lower extremity Dopplers could be considered in the meantime. He is being placed on a azithromycin, Rocephin, dexamethasone and remdesivir and treatment here along with low flow supplemental oxygen primarily for symptomatic relief. The patient is 85, and advanced age and at significantly increased risk. Admit for continued care. ernestina duran [id number] - Results/Orders Results/Orders: EKG shows a paced atrial rhythm at 60 bpm. Q waves in inferior leads. Normal axis. Borderline R wave progression. No definitive ST segment or T wave changes otherwise indicative of acute ischemia. Normal QT interval. Chest x-ray shows mild bibasilar infiltrates. Laboratory Results - last 24 hr 03/17/20 03/17/20 03/17/20 12:05 12:05 12:05 WBC RBC Hgb Hct MCV MCH MCHC RDW Plt Count MPV Absolute Neuts (auto) Absolute Lymphs (auto) Absolute Monos (auto) Absolute Eos (auto) Absolute Basos (auto) Neutrophils % Lymphocytes % Monocytes % Eosinophils % Basophils % PT 10.3 INR 1.04 PTT (SP) 26.1 Fibrinogen D-Dimer, Quantitative 4420.0 H* Sodium 136 Potassium 4.6 Chloride 101 Carbon Dioxide 22 Anion Gap 17.6 BUN 35 H Creatinine 1.46 H BUN/Creatinine Ratio 24.0 H Random Glucose 164 H Serum Osmolality 283.6 Lactic Acid 1.6 Calcium 8.7 Magnesium 1.9 Ferritin Total Bilirubin 0.8 AST 34 ALT 40 Alkaline Phosphatase 61 LD Total Creatine Kinase 34 L CK-MB (CK-2) 0.8 CK-MB (CK-2) % Not Reportable Troponin I < 0.02 C-Reactive Protein B-Natriuretic Peptide 315.0 H* Serum Total Protein 6.6 Albumin 3.4 Globulin 3.2 Albumin/Globulin Ratio 1.1 TSH 0.46 03/17/20 03/17/20 03/17/20 12:05 12:05 12:05 WBC 12.0 H RBC 4.17 L Hgb 12.7 L Hct 37.3 L MCV 89.6 MCH 30.4 MCHC 33.9 RDW 13.0 Plt Count 199 MPV 7.6 Absolute Neuts (auto) 10.90 H Absolute Lymphs (auto) 0.60 L Absolute Monos (auto) 0.50 Absolute Eos (auto) 0.00 Absolute Basos (auto) 0.10 Neutrophils % 90.8 H Lymphocytes % 4.7 L Monocytes % 4.0 Eosinophils % 0.0 L Basophils % 0.5 PT INR PTT (SP) Fibrinogen 355 D-Dimer, Quantitative Sodium Potassium Chloride Carbon Dioxide Anion Gap BUN Creatinine BUN/Creatinine Ratio Random Glucose Serum Osmolality Lactic Acid Calcium Magnesium Ferritin 119.8 Total Bilirubin AST ALT Alkaline Phosphatase LD Total Creatine Kinase CK-MB (CK-2) CK-MB (CK-2) % Troponin I C-Reactive Protein B-Natriuretic Peptide Serum Total Protein Albumin Globulin Albumin/Globulin Ratio TSH 03/17/20 12:05 WBC RBC Hgb Hct MCV MCH MCHC RDW Plt Count MPV Absolute Neuts (auto) Absolute Lymphs (auto) Absolute Monos (auto) Absolute Eos (auto) Absolute Basos (auto) Neutrophils % Lymphocytes % Monocytes % Eosinophils % Basophils % PT INR PTT (SP) Fibrinogen D-Dimer, Quantitative Sodium Potassium Chloride Carbon Dioxide Anion Gap BUN Creatinine BUN/Creatinine Ratio Random Glucose Serum Osmolality Lactic Acid Calcium Magnesium Ferritin Total Bilirubin AST ALT Alkaline Phosphatase LD Total 138 Creatine Kinase CK-MB (CK-2) CK-MB (CK-2) % Troponin I C-Reactive Protein 2.3 H B-Natriuretic Peptide Serum Total Protein Albumin Globulin Albumin/Globulin Ratio TSH Departure - Departure Clinical Impression: Pneumonia due to COVID-19 virus, Advanced age Disposition: Admit Patient Departure Forms: ED Discharge - Pt. Copy, Patient Portal Self Enrollment Referrals: FARHAT RAMIREZ MD [Primary Care Provider] - 1-2 Weeks Home Medications: Ambulatory Orders Aspirin [(None)] 325 mg PO QD 12/05/15 Clopidogrel Bisulfate [Plavix] 75 mg PO QD 12/05/15 Metoprolol Tartrate 50 mg PO BID 12/05/15 Potassium Chloride [Potassium Chloride ER] 20 meq PO DAILY 12/05/15 Decision To Admit - Decistion To Admit Decision to Admit Reason: Medical Nature Decision to Admit Date: 03/17/20 Decision to Admit Time: 13:21
--- NOTE | 2020-03-17 13:43 | HP ---
SUPERVISING PHYSICIAN: Rogelio Temple MD CHIEF COMPLAINT: Shortness of breath and coughing. HISTORY OF PRESENT ILLNESS: This is an 85-year-old male patient who was diagnosed with COVID-19 pneumonitis about 10 days ago. He actually received monoclonal antibodies at that time and initially felt better after that infusion, but over the last week or so, he has continued to get more short of breath with increasing coughing. He does have a history of chronic obstructive pulmonary disease, but he does not wear oxygen at home. He also said he had a fever. In the Emergency Room, his initial vital signs showed temperature 98.4, heart rate 62, blood pressure 179/71, respiratory rate 20, O2 saturation 91-92%. It went up to 94% with oxygen, but with exertion, it went down to the mid 80s. He was visibly short of breath and tachypneic. In the ER, his lab showed WBC 12,000, hemoglobin 12.7, hematocrit 37.3. He has a left shift on differential. D-dimer was 4,420. Electrolytes were basically within normal limits. BUN 35, creatinine 1.46. His baseline creatinine is between 1.4 and 1.6. BNP is 315. Liver enzymes were within normal limits. Chest x-ray showed median sternotomy wires, cardiac pacemaker, cardiomegaly, slightly progressed increased density at the lung bases concerning for pneumonia versus atelectasis. COVID-19 could give this appearance. No pleural effusion or pneumothorax. He was given Remdesivir, azithromycin, Rocephin, Decadron and Lovenox in the ER as well as multiple breathing treatments. Due to his low saturation, bilateral pneumonia and other comorbidities, he was admitted to the hospital for treatment of COVID-19 pneumonitis. PAST MEDICAL HISTORY: 1. Chronic obstructive pulmonary disease. 2. Coronary artery disease. 3. Hyperlipidemia. 4. Hypertension. 5. Chronic renal insufficiency. 6. Diabetes mellitus, type 2. 7. Tobacco abuse. He uses smokeless tobacco. 8. Chronic low back pain. PAST SURGICAL HISTORY: 1. Appendectomy. 2. Cholecystectomy. 3. Coronary artery bypass graft with a 3-vessel graft. 4. Pacemaker insertion. OUTPATIENT MEDICATIONS: Per the EMR and awaiting verification. ALLERGIES: NO KNOWN DRUG ALLERGIES. FAMILY HISTORY: Positive for heart disease and throat cancer. SOCIAL HISTORY: He is . He lives in [place]. He has four children. He quit smoking cigarettes over 30 years ago, but he continues to use smokeless tobacco. There is no ETOH or illicit drug use. PHYSICAL EXAMINATION: VITAL SIGNS: Temperature 97.9, heart rate 62, blood pressure 172/65, respiratory rate 18, O2 saturation 93% on 2 liters nasal cannula. GENERAL: This is an 85-year-old male patient who looks younger than his stated age. He is lying in his bed. He is in no acute distress. HEENT: Normocephalic, atraumatic. Pupils are equal and reactive. Oropharynx is clear. NECK: Supple with full range of motion. RESPIRATORY: Diminished at the bases with a few scattered rhonchi. No wheezes noted. He is tachypneic with any exertion. CARDIOVASCULAR: Regular rate and rhythm. GASTROINTESTINAL: Abdomen is soft, nondistended, nontender. Bowel sounds are positive. EXTREMITIES: No cyanosis, clubbing or edema. NEUROLOGIC: Awake, alert and oriented times three. Cranial nerves II-XII are grossly intact as tested. LABORATORY: Labs and films are as per history of present illness. IMPRESSION: 1. COVID-19 pneumonitis. 2. Chronic obstructive pulmonary disease with acute exacerbation. 3. Chronic renal insufficiency. 4. Hypertension. 5. Hyperlipidemia. 6. Tobacco abuse. 7. Diabetes mellitus, type 2. 8. Chronic low back pain. PLAN: The patient has been admitted to the hospital. He will receive the routine medications and testing as per the COVID guidelines. We will restart his home medications when those are verified. I will put him on sliding scale insulin per protocol. He will also be on Align and Mucinex as well as Lovenox for DVT prophylaxis and proton pump inhibitor for ulcer prophylaxis. Routine labs will be drawn for in the morning. We will monitor the patient closely and follow as needed. #[id number] [facility]
[2020-03-17] MEDS ORDERED: HYDROcodone 10MG/APAP 325MG 1 EA TAB PO ONE (13:47)
[2020-03-17] MEDS ORDERED: HYDROcodone 10MG/APAP 325MG 1 EA TAB ONE (13:48)
[2020-03-17] MEDS ORDERED: ACETAMINOPHEN 325 MG TAB PO PRN (15:03)
[2020-03-17] MEDS ORDERED: SODIUM CHLORIDE 0.9% (FLUSH) 10 ML SYG IV PRN (15:03)
[2020-03-17] MEDS ORDERED: ALBUTEROL INHALER 64 PUFF/8GM INH PRN (15:07)
[2020-03-17] MEDS ORDERED: IV SET AND CAP CHANGE INJ INJ SCH (15:30)
[2020-03-17] MEDS: ALBUTEROL INHALER 64 PUFF/8GM INH SCH ×2 (16:00→19:45)
[2020-03-17] MEDS ORDERED: DEXTROSE 50% 25 GM/50 ML SYG IV PRN (16:10)
[2020-03-17] MEDS ORDERED: GLUCAGON INJ 1 MG VIAL SUBCU PRN (16:10)
[2020-03-17] MEDS ORDERED: INSULIN LISPRO 100 UNITS/ML PEN SUBCU ONE (16:33)
[2020-03-17] MEDS: CLOPIDOGREL 75 MG TAB PO SCH (16:53)
[2020-03-17] MEDS: ASPIRIN TABLET 325 MG TAB PO SCH (16:53)
[2020-03-17] MEDS: metFORMIN XR 500 MG TAB.ER.24 PO SCH (16:53)
[2020-03-17] MEDS: INSULIN LISPRO 100 UNITS/ML PEN SUBCU SCH ×2 (16:54→21:15)
[2020-03-17] MEDS ORDERED: TEMAZEPAM 15 MG CAP PO PRN (17:59)
[2020-03-17] MEDS ORDERED: guaiFENesin ER TAB 600 MG TAB ONE (19:06)
[2020-03-17] MEDS ORDERED: ATORVASTATIN 20 MG TAB PO ONE (19:06)
[2020-03-17] MEDS ORDERED: METOPROLOL TARTRATE 50 MG TAB ONE (19:06)
[2020-03-17] MEDS: ATORVASTATIN 20 MG TAB PO SCH (21:03)
[2020-03-17] MEDS: guaiFENesin ER TAB 600 MG TAB PO SCH (21:03)
[2020-03-17] MEDS: METOPROLOL TARTRATE 50 MG TAB PO SCH (21:04)
[2020-03-17] MEDS: HYDROcodone 10MG/APAP 325MG 1 EA TAB PO PRN (21:04)
[2020-03-17] MEDS: SODIUM CHLORIDE 0.9% (FLUSH) 10 ML SYG IV SCH (21:05)
[2020-03-18] MEDS: HYDROcodone 10MG/APAP 325MG 1 EA TAB PO PRN ×3 (04:11→22:38)
[2020-03-18] MEDS: PANTOPRAZOLE SODIUM IV 40 MG VIAL IV SCH (05:56)
--- NOTE | 2020-03-18 07:55 | RAD ---
EXAM: XR Chest, 1 View CLINICAL HISTORY: Covid TECHNIQUE: Frontal view of the chest. COMPARISON: 03/17/2020 FINDINGS: Lungs: Stable mild interstitial thickening in the periphery of the right lung. Pleural space: No pneumothorax. No pleural effusion. Heart: Normal cardiac size and configuration. Mediastinum: No abnormality noted. Bones/joints: No osseous destruction or sclerosis noted. Tubes, lines and devices: Stable cardiac shadow. Stable cardiac pacing wires. IMPRESSION: Stable abnormalities as above. Electronically signed by: Inna Barnhart MD 03/18/2020 7:53 AM [facility]
[2020-03-18] MEDS: INSULIN LISPRO 100 UNITS/ML PEN SUBCU SCH ×4 (08:00→21:06)
[2020-03-18] MEDS ORDERED: AZITHROMYCIN IV 500 MG VIAL IVPB ONE (08:20)
[2020-03-18] MEDS ORDERED: SODIUM CHLORIDE 0.9% 250ML 250 ML ONE (08:20)
[2020-03-18] MEDS: ALBUTEROL INHALER 64 PUFF/8GM INH SCH ×4 (08:29→20:30)
[2020-03-18] MEDS: ASPIRIN TABLET 325 MG TAB PO SCH (09:01)
[2020-03-18] MEDS: POTASSIUM CHLORIDE 20 MEQ TAB PO SCH (09:01)
[2020-03-18] MEDS: ENOXAPARIN SODIUM 40 MG/0.4 ML SYG SUBCU SCH (09:01)
[2020-03-18] MEDS: METOPROLOL TARTRATE 50 MG TAB PO SCH ×2 (09:01→20:56)
[2020-03-18] MEDS: cefTRIAXone SODIUM 1 GM in SODIUM CHL 0.9% 50ML MIN-BAG+ 50 ML IVPB SCH (09:01)
[2020-03-18] MEDS: LISINOPRIL 10 MG TAB PO SCH (09:01)
[2020-03-18] MEDS: guaiFENesin ER TAB 600 MG TAB PO SCH ×2 (09:01→20:56)
[2020-03-18] MEDS: SODIUM CHLORIDE 0.9% (FLUSH) 10 ML SYG IV SCH ×2 (09:02→20:57)
[2020-03-18] MEDS: amLODIPine BESYLATE 5 MG TAB PO SCH (09:02)
[2020-03-18] MEDS: CLOPIDOGREL 75 MG TAB PO SCH (09:02)
[2020-03-18] MEDS: AZITHROMYCIN IV 500 MG in SODIUM CHLORIDE 0.9% 250ML 250 ML IVPB SCH (09:11)
[2020-03-18] MEDS: DEXAMETHASONE INJ 4 MG/ML VIAL IV SCH (11:36)
[2020-03-18] MEDS: BIFIDOBACTERIUM INFANTIS 4 MG CAP PO SCH ×2 (11:36→20:56)
[2020-03-18] MEDS ORDERED: REMDESIVIR 100 MG in SODIUM CHLORIDE 0.9% 250ML 250 ML IVPB SCH (12:00)
--- NOTE | 2020-03-18 13:33 | PN ---
SUPERVISING PHYSICIAN: Rogelio Temple MD DATE: 03/18/20 SUBJECTIVE: The patient is lying in bed. He says he feels much better. We discussed the possibility of him going home tomorrow if he continues to improve. OBJECTIVE: VITAL SIGNS: Temperature 97.4, heart rate 60, blood pressure 166/69, respiratory rate 18, O2 saturation 99% on 2 liters nasal cannula. RESPIRATORY: Slightly diminished at the bases, but otherwise clear to auscultation. CARDIAC: Regular rate and rhythm. NEUROLOGIC: Awake, alert and oriented times three. LABORATORY: WBCs 7,000, hemoglobin 12.5, hematocrit 37. He has a left shift on differential. Fibrinogen 418, D-dimer 3,350. Electrolytes are basically within normal limits. BUN 37, creatinine 1.41. C-reactive protein 4. RADIOLOGY: Chest x-ray shows lungs stable, mild interstitial thickening in the periphery of the right lung. No pneumothorax, no pleural effusion. All other labs and films have been reviewed via the EMR. ASSESSMENT: 1. COVID-19 pneumonitis. 2. Chronic obstructive pulmonary disease with acute exacerbation. 3. Chronic renal insufficiency. 4. Hypertension. 5. Hyperlipidemia. 6. Tobacco abuse. 7. Diabetes mellitus, type 2. 8. Chronic low back pain. PLAN: We will continue present supportive care including the COVID guidelines. Because tomorrow is a holiday, I will send his discharge medications to his pharmacy so his family can get them. We will plan on discharge for tomorrow if he continues to improve. I will do his lab and x-rays per the protocol. He will need to go home on some DVT prophylaxis as least for 14 days until he sees his primary care physician because of his elevated D-dimer as well as his history. We will monitor and treat as needed. #[id number] [facility]
[2020-03-18] MEDS: metFORMIN XR 500 MG TAB.ER.24 PO SCH (16:28)
[2020-03-18] MEDS: ATORVASTATIN 20 MG TAB PO SCH (20:56)
[2020-03-19] MEDS: HYDROcodone 10MG/APAP 325MG 1 EA TAB PO PRN (05:22)
[2020-03-19] MEDS: PANTOPRAZOLE SODIUM IV 40 MG VIAL IV SCH (05:36)
[2020-03-19] MEDS: ALBUTEROL INHALER 64 PUFF/8GM INH SCH (08:00)
[2020-03-19] MEDS: INSULIN LISPRO 100 UNITS/ML PEN SUBCU SCH (08:05)
[2020-03-19] MEDS: CLOPIDOGREL 75 MG TAB PO SCH (08:20)
[2020-03-19] MEDS: amLODIPine BESYLATE 5 MG TAB PO SCH (08:20)
[2020-03-19] MEDS: ASPIRIN TABLET 325 MG TAB PO SCH (08:20)
[2020-03-19] MEDS: METOPROLOL TARTRATE 50 MG TAB PO SCH (08:20)
[2020-03-19] MEDS: LISINOPRIL 10 MG TAB PO SCH (08:20)
[2020-03-19] MEDS: BIFIDOBACTERIUM INFANTIS 4 MG CAP PO SCH (08:20)
[2020-03-19] MEDS: DEXAMETHASONE INJ 4 MG/ML VIAL IV SCH (08:21)
[2020-03-19] MEDS: cefTRIAXone SODIUM 1 GM in SODIUM CHL 0.9% 50ML MIN-BAG+ 50 ML IVPB SCH (08:21)
[2020-03-19] MEDS: ENOXAPARIN SODIUM 40 MG/0.4 ML SYG SUBCU SCH (08:21)
[2020-03-19] MEDS: guaiFENesin ER TAB 600 MG TAB PO SCH (08:21)
[2020-03-19] MEDS: POTASSIUM CHLORIDE 20 MEQ TAB PO SCH (08:21)
[2020-03-19] MEDS: SODIUM CHLORIDE 0.9% (FLUSH) 10 ML SYG IV SCH (08:22)
[2020-03-19] MEDS: AZITHROMYCIN IV 500 MG in SODIUM CHLORIDE 0.9% 250ML 250 ML IVPB SCH (09:22)
[2020-03-19 10:42] VITALS: BP 141/76; TEMP 97.4; O2SAT 94
--- NOTE | 2020-04-01 15:26 | DS ---
SUPERVISING PHYSICIAN: Rogelio Temple MD DISCHARGE DIAGNOSES: 1. COVID-19 pneumonitis. 2. Chronic obstructive pulmonary disease with acute exacerbation. 3. Chronic renal insufficiency. 4. Hypertension. 5. Hyperlipidemia. 6. Tobacco abuse. 7. Diabetes mellitus, type 2. 8. Chronic low back pain. HISTORY OF PRESENT ILLNESS: This is an 85-year-old male patient who was diagnosed with COVID-19 pneumonitis about 10 days prior to admission. He actually received the monoclonal antibodies at that time and he initially felt better after that infusion, but over the last week or so he has continued to get more short of breath with increasing cough. He does have a history of chronic obstructive pulmonary disease, but he does not wear oxygen at home. He has had a fever. In the Emergency Room, his initial vital signs were unremarkable with exception of oxygen saturations being 91 to 92% on room air. It went up to 94% with oxygen but with exertion it went down to the mid 80s. He was visibly short of breath and tachypneic. He had a left shift on his differential. D-dimer was 4,420. BUN 35, creatinine 1.46. His baseline creatinine is between 1.4 and 1.6. BNP of 315. His chest x-ray showed progressed increased densities at the lung bases concerning for pneumonia versus atelectasis and COVID-19 could give this appearance. He was placed on the routine medications in the Emergency Room and given breathing treatments and was admitted for Covid-19 pneumonitis HOSPITAL COURSE: The patient was admitted to the hospital and placed on the Covid-19 guidelines including Remdesivir, azithromycin, Rocephin, Decadron and Lovenox. He had a PPI for ulcer prophylaxis as well as his regular pulmonary hygiene. His home medications were restarted. He continued to be quite short of breath and the patient may have to go home on oxygen but he continued to improve. His vital signs stabilized. His labs stabilized, he is on 94 to 98% on room air. He only dropped to 93 with exertion. He will be discharged home today in stable condition. LABORATORY: WBC 7,500, hemoglobin 12.4, hematocrit 37.2, D-dimer was up to 4,420 and is now down to 3,160. BUN 37, creatinine 1.37. His other electrolytes are within normal limits with the exception calcium is low at 8.3. C-reactive protein is 2.1. RADIOLOGY: Final chest x-ray shows stable abnormalities as per the report. His echocardiogram showed: 1. Left ventricular ejection fraction estimated at 2D at 65%, abnormal septal motion due to previous coronary artery bypass graft. 2. There is mild concentric left ventricular hypertrophy. 3. Borderline left atrial enlargement. 4. Mild aortic valve regurgitation. 5. Normal right atrial size, pacemaker is present. DISCHARGE PLAN: The patient will be discharged home in stable condition. He is to resume his previous diet and increase his activity as tolerated. In addition to his routine home medications, he is to continue with Cefdinir, dexamethasone and azithromycin. I have also given him some Temazepam for sleep. [facility] was consulted and there were no issues found. He is to followup with Dr. Rios, his primary care physician, within the next one to two weeks. Return to the hospital or followup with Dr. Rios for any problems or complications. DISCHARGE MEDICATIONS: 1. Plavix. 2. Aspirin. 3. Potassium chloride. 4. Metoprolol. 5. Metformin. 6. Lisinopril. 7. Amlodipine. 8. Hydrocodone. 9. Atorvastatin. 10. Cefdinir. 11. Dexamethasone. 12. Azithromycin. 13. Temazepam. 14. Albuterol. #[id number] [facility]
== END 2020-03-19 11:40 | disposition home or self-care (01) | DRG 177 ==
LOC: ER 11:23 → OBSVTOIN 13:41 → MS 13:41
PROVIDERS: ADMIT Nurse Practitioner Acute Care; ATTEND Nurse Practitioner Acute Care
PROC: XW033E5 Introduction of Remdesivir Anti-infective into Peripheral Vein, Percutaneous Approach, New Technology Group 5 (ICD-10-PCS; principal; 2020-03-17)
DX: U07.1 COVID-19 (principal); J12.89 Other viral pneumonia; J44.1 Chronic obstructive pulmonary disease with (acute) exacerbation; J44.0 Chronic obstructive pulmonary disease with (acute) lower respiratory infection; I12.9 Hypertensive chronic kidney disease with stage 1 through stage 4 chronic kidney disease, or unspecified chronic kidney disease; E11.22 Type 2 diabetes mellitus with diabetic chronic kidney disease; N18.9 Chronic kidney disease, unspecified; G89.29 Other chronic pain; M54.5 Low back pain; E78.5 Hyperlipidemia, unspecified; I35.1 Nonrheumatic aortic (valve) insufficiency; I25.10 Atherosclerotic heart disease of native coronary artery without angina pectoris; R09.02 Hypoxemia; F17.220 Nicotine dependence, chewing tobacco, uncomplicated; Z91.041 Radiographic dye allergy status; Z95.1 Presence of aortocoronary bypass graft; Z95.0 Presence of cardiac pacemaker; Z90.49 Acquired absence of other specified parts of digestive tract; Z79.82 Long term (current) use of aspirin; Z79.02 Long term (current) use of antithrombotics/antiplatelets; Z95.5 Presence of coronary angioplasty implant and graft

== ENCOUNTER 2020-04-03 21:37 | Inpatient (IN) | payer MEDICARE, OTHER ==
[2020-04-03] MEDS ORDERED: SODIUM CHLORIDE 0.9% (FLUSH) 10 ML SYG IV PRN (21:53)
[2020-04-03] MEDS ORDERED: ONDANSETRON INJ 4 MG/2 ML VIAL IV ONE (21:53)
--- NOTE | 2020-04-03 21:53 | ED.PDOC ---
History of Present Illness - General Chief Complaint: Fever Stated Complaint: fever, vomiting Time Seen by Provider: 04/03/20 21:51 Source: patient - History of Present Illness Initial Comments: Seen on ED arrival at 21:50 85 yo male with PMH of HTN, COPD, DM2, CKD who presents with cc of fever and vomiting. Reports onset of fever and vomiting this evening a few hours prior to ED arrival. States he had fever of 104 Fahrenheit at home and shortly after had nausea with one episode of nonbloody nonbilious emesis. Patient states he has felt ill for the past 1 month. He was diagnosed with COVID-19 and that February and was admitted here for COVID-19 pneumonia with hypoxia. He improved with inpatient treatment and was discharged home. He reports he has continued to have nonspecific symptoms of generally not feeling well with poor energy, slightly decreased appetite, feeling of disequilibrium when he walks. Denies currently any cough, dyspnea, chest pain, headaches, body aches, abdominal pain, diarrhea, urinary symptoms, leg swelling, sore throat. No known recent sick contacts. He does state he has lost approximately 10 pounds in the past 1 month due to illness. PCP is Dr. Ramirez. Allergies/Adverse Reactions: Allergies IV DYE Allergy (Unknown, Uncoded 03/17/20 18:29) verified w/ pt Home Medications: Ambulatory Orders Aspirin [(None)] 325 mg PO QD 12/05/15 Clopidogrel Bisulfate [Plavix] 75 mg PO QD 12/05/15 Metoprolol Tartrate 50 mg PO BID 12/05/15 Potassium Chloride [Potassium Chloride ER] 20 meq PO DAILY 12/05/15 Amlodipine Besylate [Norvasc] 10 mg PO QAM 03/17/20 Atorvastatin Calcium [Lipitor] 80 mg PO BEDTIME 03/17/20 Atorvastatin Calcium [Lipitor] 80 mg PO QPM 03/17/20 HYDROcodone 10MG/APAP 325MG [[place] 10325] 1 tab PO Q6HR PRN 03/17/20 Lisinopril 20 mg PO DAILY 03/17/20 Metformin HCl [Metformin Hydrochloride E] 500 mg PO QPM 03/17/20 Azithromycin Tab [Zithromax Tab] 250 mg PO QD #4 tab 03/18/20 Cefdinir 300 mg PO BID #14 capsule 03/18/20 Dexamethasone Tab [Decadron Tab] 4 mg PO DAILY #7 tab 03/18/20 Temazepam [Restoril] 15 mg PO BEDTIME PRN #15 cap 03/19/20 Review of Systems - Review of Systems Review of Systems: 04/03/20 22:34 as per HPI All other Systems: Reviewed and Negative Past Medical History (General) - Patient Medical History Hx Seizures: No Hx Stroke: No Hx Dementia: No Hx Asthma: No Hx of COPD: No Hx Cardiac Disorders: Yes - Pt has STENTs/BYPASS Hx Congestive Heart Failure: Yes Hx Pacemaker: Yes Hx Hypertension: Yes Hx Thyroid Disease: No Hx Diabetes: Yes Hx Gastroesophageal Reflux: No Hx Renal Disease: No Hx Cancer: No Hx of HIV: No Hx Hepatitis C: No Hx MRSA: No - Vaccination History Hx Tetanus, Diphtheria Vaccination: No Hx Influenza Vaccination: Yes Hx Pneumococcal Vaccination: Yes - Social History Hx Tobacco Use: Yes - dips Hx Chewing Tobacco Use: Yes - 1 can per four days Hx Alcohol Use: No Hx Substance Use: No Hx Substance Use Treatment: No Hx Depression: No Hx Physical Abuse: No Hx Emotional Abuse: No Hx Suspected Abuse: No Family Medical History - Family History Mother Living Status: Hx Family Cancer: Yes - jaw Father Living Status: Hx Cardiac Disease: Yes Brother Living Status: Hx Cardiac Disease: Yes Physical Exam - Physical Exam General Appearance: Alert, Comfortable, No apparent distress Eye Exam: bilateral normal Ears, Nose, Throat: hearing grossly normal, normal ENT inspection, normal pharynx Neck: non-tender, full range of motion, supple, normal inspection Respiratory: no respiratory distress, no accessory muscle use, rales - Left lower lobe, all other lung isaac clear, no noted wheezing/rhonchi, moving air w ell throughout Cardiovascular/Chest: normal peripheral pulses, regular rate, rhythm, no edema, no gallop, no JVD, systolic murmur - 3/6 systolic murmur LUSB Peripheral Pulses: radial,right: 2+, radial,left: 2+ Gastrointestinal/Abdominal: normal bowel sounds, non tender, soft, no organomegaly Back Exam: normal inspection, no CVA tenderness, no vertebral tenderness Extremity: normal range of motion, non-tender, normal inspection, no pedal edema, no calf tenderness, normal capillary refill Neurologic: baker head II-XII nml as tested, no motor/sensory deficits, alert, normal mood/affect, oriented x 3 Skin Exam: normal color, warm/dry Progress - Progress Progress: 04/03/20 22:36 Fever, vomiting, hypoxia -86% on room air upon arrival but in no acute respiratory distress. Vitals otherwise stable -Consider viral infection, COVID-19, flu, gastroenteritis, bacterial pneumonia, CHF exacerbation, COPD exacerbation, PE, UTI, sepsis, other -Obtain abdominal work-up, rapid Covid/flu/strep, UA, chest x-ray, EKG -SPO2 improved to 93% on 4 L by nasal cannula oxygen, continue to monitor 04/04/20 01:17 -Patient continues to maintain adequate SPO2 93 to 95% on 4 L nasal cannula. Otherwise remained stable. -Labs reveal serum WBC 13,900 with 89% segs no bands, lactic acid 2.2. BUN 37, Cr 1.8 - slightly increased from usual baseline. Rapid COVID testing is posi tive. Strep and flu testing negative. CRP 1.5, D-dimer >5000, trop 0.02, BNP 289. Suspect d-dimer elevation 2/2 COVID-19, doubtful of PE. Unable to obtain CTA chest for further eval given allergy to IV contrast dye and elevated serum Cr level. -He does reveal bilateral lower lobe interstitial hazy infiltrates consistent with COVID-19 pneumonia per my read. -Discussed all findings with patient as well as diagnoses of COVID-19 pneumonia with acute hypoxia. Given his leukocytosis with left shift and slightly elevated lactate, bacterial pneumonia is also possible. Thus we will begin IV antibiotics in the ER as well with Rocephin 1 g IV and azithromycin 500 mg IV. Remdesivir 200 mg IV Decadron 6 mg IV also ordered for COVID-19. I advised that he will need hospital admission for further treatment and he agrees. Carol Bernal accepts the patient for further care. Family also updated. Malik Martinez MD Billing #[id number] 04/03/20 21:53 IV Care:Saline Lock per Protoc QSHIFT Sodium Chloride 0.9% (Flush) [Saline Flush Syringe] 10 ml IV PRN PRN 04/03/20 22:24 STREP A SCREEN CULTURE Stat 04/03/20 23:39 BLOOD CULTURE Stat 04/04/20 00:41 Azithromycin IV [Zithromax IV] 500 mg Sodium Chloride 0.9% 250Ml [NS 250ml] 250 ml IVPB ONCE 04/04/20 00:43 Remdesivir 200 mg Sodium Chloride 0.9% 250Ml [NS 250ml] 250 ml IVPB ONCE Laboratory Results - last 24 hr 04/03/20 04/03/20 04/03/20 21:53 21:53 21:54 WBC 13.9 H RBC 4.16 L Hgb 12.3 L Hct 37.7 L MCV 90.6 MCH 29.6 MCHC 32.7 L RDW 14.1 Plt Count 149 MPV 8.4 Absolute Neuts (auto) 12.40 H Absolute Lymphs (auto) 0.80 L Absolute Monos (auto) 0.40 Absolute Eos (auto) 0.10 Absolute Basos (auto) 0.10 Neutrophils % 89.6 H Lymphocytes % 5.8 L Monocytes % 3.2 Eosinophils % 0.5 L Basophils % 0.9 PT INR PTT (SP) Fibrinogen D-Dimer, Quantitative Sodium 138 Potassium 4.9 Chloride 106 Carbon Dioxide 22 Anion Gap 14.9 BUN 37 H Creatinine 1.86 H BUN/Creatinine Ratio 19.9 Random Glucose 197 H Serum Osmolality 289.8 Lactic Acid Calcium 8.9 Magnesium Ferritin Total Bilirubin 0.7 Direct Bilirubin 0.1 Indirect Bilirubin 0.6 AST 97 H ALT 132 H Alkaline Phosphatase 112 LD Total Troponin I C-Reactive Protein B-Natriuretic Peptide Serum Total Protein 6.4 Albumin 3.1 L Lipase 23 Urine Color Urine Appearance Urine pH Ur Specific [place] Urine Protein Urine Glucose (UA) Urine Ketones Urine Blood Urine Nitrite Urine Bilirubin Urine Urobilinogen Ur Leukocyte Esterase Urine RBC Urine WBC Ur Epithelial Cells Urine Bacteria Group A Strep Rapid 04/03/20 04/03/20 04/03/20 21:54 22:24 22:45 WBC RBC Hgb Hct MCV MCH MCHC RDW Plt Count MPV Absolute Neuts (auto) Absolute Lymphs (auto) Absolute Monos (auto) Absolute Eos (auto) Absolute Basos (auto) Neutrophils % Lymphocytes % Monocytes % Eosinophils % Basophils % PT INR PTT (SP) Fibrinogen D-Dimer, Quantitative Sodium Potassium Chloride Carbon Dioxide Anion Gap BUN Creatinine BUN/Creatinine Ratio Random Glucose Serum Osmolality Lactic Acid 2.2 Calcium Magnesium Ferritin 135.7 Total Bilirubin Direct Bilirubin Indirect Bilirubin AST ALT Alkaline Phosphatase LD Total Troponin I < 0.02 C-Reactive Protein B-Natriuretic Peptide Serum Total Protein Albumin Lipase Urine Color Urine Appearance Urine pH Ur Specific [place] Urine Protein Urine Glucose (UA) Urine Ketones Urine Blood Urine Nitrite Urine Bilirubin Urine Urobilinogen Ur Leukocyte Esterase Urine RBC Urine WBC Ur Epithelial Cells Urine Bacteria Group A Strep Rapid Negative 04/03/20 04/03/20 04/04/20 22:45 22:45 00:28 WBC RBC Hgb Hct MCV MCH MCHC RDW Plt Count MPV Absolute Neuts (auto) Absolute Lymphs (auto) Absolute Monos (auto) Absolute Eos (auto) Absolute Basos (auto) Neutrophils % Lymphocytes % Monocytes % Eosinophils % Basophils % PT 10.5 INR 1.06 PTT (SP) 24.0 Fibrinogen 539 H D-Dimer, Quantitative > 5000.0 H* Sodium Potassium Chloride Carbon Dioxide Anion Gap BUN Creatinine BUN/Creatinine Ratio Random Glucose Serum Osmolality Lactic Acid Calcium Magnesium 1.8 Ferritin Total Bilirubin Direct Bilirubin Indirect Bilirubin AST ALT Alkaline Phosphatase LD Total 183 H D Troponin I C-Reactive Protein 1.5 H B-Natriuretic Peptide 289.0 H* Serum Total Protein Albumin Lipase Urine Color Urine Appearance Urine pH Ur Specific [place] Urine Protein Urine Glucose (UA) Urine Ketones Urine Blood Urine Nitrite Urine Bilirubin Urine Urobilinogen Ur Leukocyte Esterase Urine RBC Urine WBC Ur Epithelial Cells Urine Bacteria Group A Strep Rapid 04/04/20 00:47 WBC RBC Hgb Hct MCV MCH MCHC RDW Plt Count MPV Absolute Neuts (auto) Absolute Lymphs (auto) Absolute Monos (auto) Absolute Eos (auto) Absolute Basos (auto) Neutrophils % Lymphocytes % Monocytes % Eosinophils % Basophils % PT INR PTT (SP) Fibrinogen D-Dimer, Quantitative Sodium Potassium Chloride Carbon Dioxide Anion Gap BUN Creatinine BUN/Creatinine Ratio Random Glucose Serum Osmolality Lactic Acid Calcium Magnesium Ferritin Total Bilirubin Direct Bilirubin Indirect Bilirubin AST ALT Alkaline Phosphatase LD Total Troponin I C-Reactive Protein B-Natriuretic Peptide Serum Total Protein Albumin Lipase Urine Color Yellow Urine Appearance Clear Urine pH 5.0 Ur Specific [place] 1.025 Urine Protein 100 H Urine Glucose (UA) Negative Urine Ketones Negative Urine Blood Negative Urine Nitrite Negative Urine Bilirubin Negative Urine Urobilinogen 0.2 Ur Leukocyte Esterase Negative Urine RBC 0 Urine WBC 0-1 Ur Epithelial Cells 0 Urine Bacteria 0 Group A Strep Rapid - EKG/XRAY/CT EKG: Atrial - Electronically paced rhythm, heart rate 60, no ST elevations or Q waves noted, axis normal, intervals normal, compared to 03/17/2020 EKG appears unchanged XRAY: chest - Bilateral lower lobe patchy interstitial opacities noted, worse on the left side, appears consistent with possible COVID-19 pneumonia per my read. This appears worsened from 03/18/2020 chest x-ray Departure - Departure Clinical Impression: Pneumonia due to COVID-19 virus, Hypoxia Time of Disposition: 01:24 Disposition: Admit Patient Condition: Fair Departure Forms: ED Discharge - Pt. Copy, Patient Portal Self Enrollment Diet: diabetic diet Referrals: FARHAT RAMIREZ MD [Primary Care Provider] - 1-2 Weeks Home Medications: Ambulatory Orders Aspirin [(None)] 325 mg PO QD 12/05/15 Clopidogrel Bisulfate [Plavix] 75 mg PO QD 12/05/15 Metoprolol Tartrate 50 mg PO BID 12/05/15 Potassium Chloride [Potassium Chloride ER] 20 meq PO DAILY 12/05/15 Amlodipine Besylate [Norvasc] 10 mg PO QAM 03/17/20 Atorvastatin Calcium [Lipitor] 80 mg PO BEDTIME 03/17/20 Atorvastatin Calcium [Lipitor] 80 mg PO QPM 03/17/20 HYDROcodone 10MG/APAP 325MG [[place] 10/325] 1 tab PO Q6HR PRN 03/17/20 Lisinopril 20 mg PO DAILY 03/17/20 Metformin HCl [Metformin Hydrochloride E] 500 mg PO QPM 03/17/20 Azithromycin Tab [Zithromax Tab] 250 mg PO QD #4 tab 03/18/20 Cefdinir 300 mg PO BID #14 capsule 03/18/20 Dexamethasone Tab [Decadron Tab] 4 mg PO DAILY #7 tab 03/18/20 Temazepam [Restoril] 15 mg PO BEDTIME PRN #15 cap 03/19/20 Decision To Admit - Decistion To Admit Decision to Admit Reason: Admit from ER Decision to Admit Date: 04/04/20 Decision to Admit Time: 01:25
[2020-04-03] MEDS ORDERED: SODIUM CHLORIDE 0.9% 1000ML 1,000 ML IVS ONE (21:54)
--- NOTE | 2020-04-03 22:55 | RAD ---
EXAM DESCRIPTION: Chest,1 View CLINICAL HISTORY: hypoxia, fevers COMPARISON: 03/18/2020 FINDINGS: Single frontal radiograph view of the chest. Cardiomediastinal silhouette: Left-sided dual-lead sustainability specialist. Cardiomegaly. Prior median sternotomy. Atherosclerotic calcification of the thoracic aorta. Lungs: Patchy bibasilar opacities. No pneumothorax or large effusion. Bones: Prior anterior fixation of the cervical spine. Upper abdomen: Prior cholecystectomy. IMPRESSION: 1. Patchy bibasilar airspace opacities concerning for pneumonia. 2. Cardiomegaly. Electronically signed by: Yury Henriquez 04/03/2020 10:54 PM [facility]
[2020-04-04] MEDS ORDERED: DEXAMETHASONE INJ 4 MG/ML VIAL IV ONE (00:41)
[2020-04-04] MEDS ORDERED: AZITHROMYCIN IV 500 MG in SODIUM CHLORIDE 0.9% 250ML 250 ML IVPB ONE (00:41)
[2020-04-04] MEDS ORDERED: cefTRIAXone SODIUM 1 GM in SODIUM CHL 0.9% 50ML MIN-BAG+ 50 ML IVPB ONE (00:41)
[2020-04-04] MEDS ORDERED: REMDESIVIR 200 MG in SODIUM CHLORIDE 0.9% 250ML 250 ML IVPB ONE (00:43)
[2020-04-04] MEDS: HEPARIN SODIUM (PORCINE) 5,000 U/ML VIAL SUBCU SCH ×2 (01:34→12:10)
--- NOTE | 2020-04-04 01:51 | HP ---
SUPERVISING PHYSICIAN: RITA RAHMAN MD CHIEF COMPLAINT: Fever and nausea. HISTORY OF PRESENT ILLNESS: This is an 85-year-old male patient who came to the Emergency Room with complaints of feeling very weak that has progressively worsened over the last several weeks. He also had a fever up to 103 as well as some nausea and vomiting. He had one nonbilious episode of vomiting but otherwise has felt quite nauseated over the last few days. He was diagnosed with COVID-19 in February and was in the hospital from 03/17 to 03/19/20. He improved and was sent home without issues. He has felt better after discharge but in the last few days he has progressively weakened and when he had an elevated temperature today he was quite concerned and came to the Emergency Room. In the Emergency Room, his initial vital signs were temperature 99.1, heart rate 60, blood pressure 166/65, respiratory rate 20, oxygen saturation 88%. After he was put on oxygen it came up to 91%. His labs showed WBC of 13,900 with hemoglobin 12.3, hematocrit 37.7. D-dimer was greater than 5,000, fibrinogen 539. Electrolytes were basically within normal limits. BUN 37, creatinine 1.87. His baseline creatinine is about 1.3. Lactic acid 2.2. AST 97, ALT 132. LD 183. C-reactive protein 1.5. BNP 28. Urinalysis was unremarkable. Group A strep was negative. Blood cultures were drawn, influenza type A and B per PCR were both negative. Covid results were positive. Chest x- ray showed: (1) Bibasilar airspace opacities concerning for pneumonia. (2) Cardiomegaly. In the Emergency Room he was given ceftriaxone, Decadron as well as loading dose of Remdesivir. He was also given multiple breathing treatments and was admitted to the hospital in stable condition. PAST MEDICAL HISTORY: 1. Chronic obstructive pulmonary disease. 2. Coronary artery disease. 3. Hyperlipidemia. 4. Hypertension. 5. Chronic renal insufficiency. 6. Diabetes mellitus, type 2. 7. Tobacco abuse. He uses smokeless tobacco. 8. Chronic low back pain. PAST SURGICAL HISTORY: 1. Appendectomy. 2. Cholecystectomy. 3. Coronary artery bypass graft with a 3-vessel graft. 4. Pacemaker insertion. OUTPATIENT MEDICATIONS: Per the EMR and awaiting verification. ALLERGIES: NO KNOWN DRUG ALLERGIES. FAMILY HISTORY: Positive for heart disease and throat cancer. SOCIAL HISTORY: He is . He lives in [place]. He has four children. He quit smoking cigarettes over 30 years ago, but he continues to use smokeless tobacco. There is no ETOH or illicit drug use. PHYSICAL EXAMINATION: VITAL SIGNS: Temperature 97.6, heart rate 60, blood pressure 139/64, respiratory rate 20, O2 saturation 95% on 5 liters nasal cannula. GENERAL: This is an 85-year-old male patient who is lying in his hospital bed. He is in no acute distress. HEENT: Normocephalic, atraumatic. Pupils are equal and reactive. Oropharynx is clear. NECK: Supple. RESPIRATORY: Diminished at the bases with a few scattered rhonchi. He does get tachypneic with any exertion. CARDIOVASCULAR: Regular rate and rhythm. GASTROINTESTINAL: Abdomen is soft, nondistended, nontender. Bowel sounds are positive. EXTREMITIES: No cyanosis, clubbing or edema. NEUROLOGIC: Awake, alert and oriented times three. Cranial nerves II-XII are grossly intact as tested. SKIN: [place], warm and dry. LABORATORY: Labs and films are as per history of present illness. IMPRESSION: 1. COVID-19 pneumonitis. 2. Elevated D-dimer. 3. Chronic obstructive pulmonary disease with acute exacerbation. 4. Chronic renal insufficiency. 5. Hypertension. 6. Hyperlipidemia. 7. Tobacco abuse. 8. Diabetes mellitus, type 2. 8. Chronic low back pain. PLAN: The patient has been admitted to the hospital. We will start him on the Covid guidelines including all the medications. At this point, he has been treated with Remdesivir. We will hold on that medication at this time. The other ones will continue. I have put him on sliding scale insulin per protocol. He will have Protonix for ulcer prophylaxis. He will have Lovenox for DVT prophylaxis. As soon as his home medications are verified, they will be restarted. I have also ordered a CTA of his chest due to his elevated D-dimer. We will monitor him and follow as needed. #[id number] [facility]
[2020-04-04] MEDS ORDERED: ALBUTEROL INHALER 64 PUFF/8GM INH PRN (08:38)
[2020-04-04] MEDS ORDERED: TEMAZEPAM 15 MG CAP PO PRN (08:39)
[2020-04-04] MEDS ORDERED: SODIUM CHLORIDE 0.9% (FLUSH) 10 ML SYG IV PRN (08:42)
[2020-04-04] MEDS ORDERED: ACETAMINOPHEN 325 MG TAB PO PRN (08:42)
[2020-04-04] MEDS ORDERED: ONDANSETRON INJ 4 MG/2 ML VIAL IV PRN (08:42)
[2020-04-04] MEDS ORDERED: GLUCAGON INJ 1 MG VIAL SUBCU PRN (08:45)
[2020-04-04] MEDS ORDERED: DEXTROSE 50% 25 GM/50 ML SYG IV PRN (08:45)
[2020-04-04] MEDS ORDERED: ASPIRIN TABLET 325 MG TAB PO SCH (09:00)
[2020-04-04] MEDS ORDERED: IV SET AND CAP CHANGE INJ INJ SCH (09:00)
[2020-04-04] MEDS ORDERED: CLOPIDOGREL 75 MG TAB PO SCH (09:00)
[2020-04-04] MEDS ORDERED: NON-FORMULARY MEDICATION 1 EA MIS (Lisinopril [Lisinopril] 20 MG) PO SCH (09:00)
[2020-04-04] MEDS ORDERED: NON-FORMULARY MEDICATION 1 EA MIS (Amlodipine Besylate [Norvasc] 10 MG) PO SCH (09:00)
[2020-04-04] MEDS ORDERED: DEXAMETHASONE INJ 10 MG/ML VIAL ONE (09:27)
[2020-04-04] MEDS ORDERED: amLODIPine BESYLATE 5 MG TAB ONE (09:28)
[2020-04-04] MEDS ORDERED: AZITHROMYCIN IV 500 MG VIAL IVPB ONE (09:28)
[2020-04-04] MEDS ORDERED: guaiFENesin ER TAB 600 MG TAB ONE ×2 (09:28→19:20)
[2020-04-04] MEDS ORDERED: BIFIDOBACTERIUM INFANTIS 4 MG CAP ONE ×2 (09:28→19:20)
[2020-04-04] MEDS ORDERED: cefTRIAXone SODIUM 1 GM VIAL ONE (09:29)
[2020-04-04] MEDS ORDERED: POTASSIUM CHLORIDE 10 MEQ TAB PO ONE (09:29)
[2020-04-04] MEDS ORDERED: LISINOPRIL 10 MG TAB ONE (09:29)
[2020-04-04] MEDS ORDERED: SODIUM CHLORIDE 0.9% 250ML 250 ML ONE (09:29)
[2020-04-04] MEDS ORDERED: METOPROLOL TARTRATE 50 MG TAB ONE ×2 (09:29→19:20)
[2020-04-04] MEDS ORDERED: SODIUM CHL 0.9% 50ML MIN-BAG+ 50 ML IVPB ONE (09:30)
[2020-04-04] MEDS: BIFIDOBACTERIUM INFANTIS 4 MG CAP PO SCH ×2 (09:55→20:46)
[2020-04-04] MEDS: DEXAMETHASONE INJ 10 MG/ML VIAL IV SCH (09:56)
[2020-04-04] MEDS: METOPROLOL TARTRATE 50 MG TAB PO SCH ×2 (09:57→20:46)
[2020-04-04] MEDS: guaiFENesin ER TAB 600 MG TAB PO SCH ×2 (09:58→20:46)
[2020-04-04] MEDS: NON-FORMULARY MEDICATION 1 EA MIS (Potassium Chloride [Potassium Chloride Er] 20 MEQ) PO SCH (10:03)
[2020-04-04] MEDS: SODIUM CHLORIDE 0.9% (FLUSH) 10 ML SYG IV SCH ×2 (10:03→20:46)
[2020-04-04] MEDS: cefTRIAXone SODIUM 1 GM in SODIUM CHL 0.9% 50ML MIN-BAG+ 50 ML IVPB SCH (10:03)
[2020-04-04] MEDS: AZITHROMYCIN IV 500 MG in SODIUM CHLORIDE 0.9% 250ML 250 ML IVPB SCH (10:04)
[2020-04-04] MEDS ORDERED: HYDROcodone 10MG/APAP 325MG 1 EA TAB ONE ×3 (12:00→23:16)
[2020-04-04] MEDS ORDERED: REMDESIVIR 100 MG in SODIUM CHLORIDE 0.9% 250ML 250 ML IVPB SCH (12:00)
[2020-04-04] MEDS: HYDROcodone 10MG/APAP 325MG 1 EA TAB PO PRN ×3 (12:06→23:41)
[2020-04-04] MEDS: INSULIN LISPRO 100 UNITS/ML PEN SUBCU SCH ×3 (12:47→20:50)
[2020-04-04] MEDS ORDERED: INSULIN,ISOP(HUMAN(NPH) 100 UNITS/ML PEN SUBCU ONE (16:12)
[2020-04-04] MEDS ORDERED: metFORMIN XR 500 MG TAB.ER.24 PO ONE (17:37)
[2020-04-04] MEDS ORDERED: metFORMIN XR 500 MG TAB.ER.24 PO SCH (18:00)
[2020-04-04] MEDS ORDERED: ATORVASTATIN 20 MG TAB PO ONE (19:20)
[2020-04-04] MEDS ORDERED: SODIUM CHLORIDE 0.9% (FLUSH) 10 ML SYG ONE (19:21)
[2020-04-04] MEDS ORDERED: ENOXAPARIN SODIUM 40 MG/0.4 ML SYG SUBCU ONE (19:21)
[2020-04-04] MEDS ORDERED: ALBUTEROL INHALER 64 PUFF/8GM INH ONE (20:02)
[2020-04-04] MEDS ORDERED: TEMAZEPAM 15 MG CAP ONE (20:07)
[2020-04-04] MEDS: ALBUTEROL INHALER 64 PUFF/8GM INH SCH ×2 (20:36→21:28)
[2020-04-04] MEDS ORDERED: NON-FORMULARY MEDICATION 1 EA MIS (Atorvastatin Calcium [Lipitor] 80 MG) PO SCH (21:00)
[2020-04-04] MEDS ORDERED: ENOXAPARIN SODIUM 40 MG/0.4 ML SYG SUBCU SCH (21:00)
[2020-04-05] MEDS ORDERED: PANTOPRAZOLE SODIUM IV 40 MG VIAL ONE (05:02)
[2020-04-05] MEDS ORDERED: HYDROcodone 10MG/APAP 325MG 1 EA TAB ONE ×2 (05:39→09:07)
[2020-04-05] MEDS: HYDROcodone 10MG/APAP 325MG 1 EA TAB PO PRN ×2 (05:40→09:22)
[2020-04-05] MEDS ORDERED: PANTOPRAZOLE SODIUM IV 40 MG VIAL IV SCH (06:30)
[2020-04-05] MEDS ORDERED: DEXAMETHASONE INJ 10 MG/ML VIAL ONE (07:37)
[2020-04-05] MEDS ORDERED: amLODIPine BESYLATE 5 MG TAB ONE (07:37)
[2020-04-05] MEDS ORDERED: guaiFENesin ER TAB 600 MG TAB ONE (07:37)
[2020-04-05] MEDS ORDERED: POTASSIUM CHLORIDE 10 MEQ TAB PO ONE (07:37)
[2020-04-05] MEDS ORDERED: BIFIDOBACTERIUM INFANTIS 4 MG CAP ONE (07:37)
[2020-04-05] MEDS ORDERED: METOPROLOL TARTRATE 50 MG TAB ONE (07:37)
[2020-04-05] MEDS ORDERED: AZITHROMYCIN IV 500 MG VIAL IVPB ONE (07:37)
[2020-04-05] MEDS ORDERED: SODIUM CHLORIDE 0.9% 250ML 250 ML ONE (07:38)
[2020-04-05] MEDS ORDERED: SODIUM CHL 0.9% 50ML MIN-BAG+ 50 ML IVPB ONE (07:38)
[2020-04-05] MEDS ORDERED: cefTRIAXone SODIUM 1 GM VIAL ONE (07:38)
[2020-04-05] MEDS: ALBUTEROL INHALER 64 PUFF/8GM INH SCH ×2 (08:25→11:46)
[2020-04-05 08:51] VITALS: BP 154/74; TEMP 97.8; O2SAT 91
[2020-04-05] MEDS: INSULIN LISPRO 100 UNITS/ML PEN SUBCU SCH (09:19)
[2020-04-05] MEDS: BIFIDOBACTERIUM INFANTIS 4 MG CAP PO SCH (09:20)
[2020-04-05] MEDS: guaiFENesin ER TAB 600 MG TAB PO SCH (09:20)
[2020-04-05] MEDS: DEXAMETHASONE INJ 10 MG/ML VIAL IV SCH (09:21)
[2020-04-05] MEDS: METOPROLOL TARTRATE 50 MG TAB PO SCH (09:21)
[2020-04-05] MEDS: cefTRIAXone SODIUM 1 GM in SODIUM CHL 0.9% 50ML MIN-BAG+ 50 ML IVPB SCH (09:22)
[2020-04-05] MEDS: NON-FORMULARY MEDICATION 1 EA MIS (Potassium Chloride [Potassium Chloride Er] 20 MEQ) PO SCH (09:24)
[2020-04-05] MEDS: AZITHROMYCIN IV 500 MG in SODIUM CHLORIDE 0.9% 250ML 250 ML IVPB SCH (09:25)
[2020-04-05] MEDS: SODIUM CHLORIDE 0.9% (FLUSH) 10 ML SYG IV SCH (09:25)
--- NOTE | 2020-04-17 13:26 | DS ---
SUPERVISING PHYSICIAN: Stu Boyd MD DISCHARGE DIAGNOSIS: 1. COVID-19 pneumonitis. 2. Elevated D-dimer. 3. Chronic obstructive pulmonary disease with acute exacerbation. 4. Chronic renal insufficiency. 5. Hypertension. 6. Hyperlipidemia. 7. Tobacco abuse. 8. Diabetes mellitus, type 2. 8. Chronic low back pain. HISTORY OF PRESENT ILLNESS: This is an 85-year-old male patient who came to the Emergency Room with complaints of feeling weak that has progressively worsened over the last several weeks. He also had a fever up to 103 as well as some nausea and vomiting. He had one nonbilious episode of vomiting but otherwise has felt quite nauseated for several days. He was diagnosed with COVID-19 in February and was in the hospital from 03/17 to 03/19/20. He improved and was sent home without issues. He had felt better after discharge but in the last few days he had progressively weakened. He had an elevated temperature and he was quite concerned and came to the Emergency Room. In the Emergency Room, his COVID results were positive and he was placed on the routine COVID guidelines and I was called for hospital admission. HOSPITAL COURSE: The patient was admitted to the hospital and started on COVID guidelines including medications. He received some Remdesivir in the ER, but because he had been treated earlier with it, that medication was held. The Rocephin, azithromycin, Decadron were continued. He did have Lovenox for DVT prophylaxis. His home medications were restarted. A CTA was also ordered due to his elevated D-dimer. He no longer felt any weakness and at that point, his only concern was that he had an elevated temperature. He was under the impression that once he left the hospital that his COVID was gone. After extensive talking to both he and his , the patient understood that he still had COVID from previously and he would have to take it easy for several months. He continued with his medications as previously ordered. His lab and vital signs have stabilized and he will be discharged home in stable condition. LABORATORY: WBCs were 13,900 and are now 11,400. Hemoglobin and hematocrit are 10.2 and 30.9. D-dimer was greater than 5,000 and is now 3,590. Electrolytes were within normal limits except calcium slightly elevated at 8. ALT 67. C-reactive protein 7. Group A rapid strep was negative. MICROBIOLOGY: Preliminary blood cultures showed no growth. Influenza A and B per PCR were both negative. RADIOLOGY: His chest CTA was unable to be completed due to his elevated creatinine. PLAN: The patient will be discharged home in stable condition. He is to resume his previous diet and increase his activity as tolerated. He is to followup with Dr. Rios within the next 1 to 2 weeks. In addition to his routine medications, he is discharged on Align, Eliquis, guaifenesin, albuterol and azithromycin. He is to return to the hospital or followup with Dr. Rios for any problems or complications. DISCHARGE MEDICATIONS: 1. Plavix. 2. Aspirin. 3. Potassium chloride. 4. Metoprolol. 5. Metformin. 6. Lisinopril. 7. Amlodipine. 8. Hydrocodone. 9. Atorvastatin. 10. Dexamethasone. 11. Temazepam. 12. Align. 13. Eliquis. 14. Guaifenesin. 15. Albuterol. 16. Azithromycin. #[id number] [facility]
== END 2020-04-05 12:45 | disposition home or self-care (01) | DRG 177 ==
LOC: ER 21:37 → OBSVTOIN 04-04 01:50 → MS 04-04 01:50
PROVIDERS: ADMIT Nurse Practitioner Acute Care; ATTEND Nurse Practitioner Acute Care
PROC: XW033E5 Introduction of Remdesivir Anti-infective into Peripheral Vein, Percutaneous Approach, New Technology Group 5 (ICD-10-PCS; principal; 2020-04-04)
DX: U07.1 COVID-19 (principal); J12.82 Pneumonia due to coronavirus disease 2019; J44.0 Chronic obstructive pulmonary disease with (acute) lower respiratory infection; E78.5 Hyperlipidemia, unspecified; I12.9 Hypertensive chronic kidney disease with stage 1 through stage 4 chronic kidney disease, or unspecified chronic kidney disease; N18.9 Chronic kidney disease, unspecified; E11.22 Type 2 diabetes mellitus with diabetic chronic kidney disease; G89.29 Other chronic pain; M54.5 Low back pain; Z79.82 Long term (current) use of aspirin; Z79.84 Long term (current) use of oral hypoglycemic drugs; Z95.0 Presence of cardiac pacemaker; Z95.1 Presence of aortocoronary bypass graft